=== PATIENT | male | born 1995 | race Hispanic/Latino ===

== ENCOUNTER 2019-01-15 04:11 | Inpatient (IN) | payer MEDICAID, OTHER ==
[~2019-01-15] VITALS: Ht 167.6 cm; Wt 81.6 kg
[2019-01-15 04:28] LABS: BASOPHILS % (AUTO) 0.7 % (0.0-5.0); HEMATOCRIT 47.5 % (42-54); LYMPHOCYTES % (AUTO) 43.6 % (21.0-51.0); MEAN CORPUSCULAR HEMOGLOBIN 29.7 pg (27.0-33.0); MEAN CORPUSCULAR HGB CONC 34.8 g/dL (32.0-36.0); MEAN CORPUSCULAR VOLUME 85.4 fL (79-99); MONOCYTES % (AUTO) 7.9 % (3.0-13.0); NEUTROPHILS % (AUTO) 45.8 % (40.0-77.0); NUCLEATED RED BLOOD CELLS 0.1 % (0.0-0.19); PLATELET COUNT (AUTO) 295 K/uL (130-400); RED BLOOD CELL COUNT(AUTO) 5.56 MIL/uL (4.50-6.20); RED CELL DISTRIBUTION WIDTH 13.2 % (11.0-15.5); WHITE BLOOD COUNT (AUTO) 11.6 K/uL (4.8-10.8)
[2019-01-15] MEDS ORDERED: DiphenhydrAMINE HCL 50 MG/ML VIAL ONE (04:28)
[2019-01-15] MEDS ORDERED: ZIPRASIDONE MESYLATE 20 MG/VIAL IM ONE (04:28)
[2019-01-15] MEDS ORDERED: LORAZEPAM 2 MG/ML 1 ML VIAL ONE (04:28)
[2019-01-15 04:39] LABS: ALBUMIN 4.1 g/dL (3.5-5.0); BILIRUBIN,DIRECT 0.1 mg/dL (0.0-0.3); BILIRUBIN,TOTAL 0.6 mg/dL (0.2-1.0); CREATININE 1.1 mg/dL (0.5-1.5); TOTAL PROTEIN, SERUM 8.2 g/dL (6.0-8.3)
[2019-01-15 04:41] LABS: POTASSIUM 2.8 mmol/L (3.5-5.1)
[2019-01-15] MEDS ORDERED: SODIUM CHLORIDE 0.9% 1000ML 1,000 ML IV ONE (04:58)
[2019-01-15] MEDS ORDERED: POTASSIUM BICARB/CIT AC 25 MEQ TABLET.EFF ONE (05:07)
[2019-01-15 06:52] LABS: AMPHET/METH SCREEN,URINE NEGATIVE (NEGATIVE); BARBITURATE SCREEN, URINE NEGATIVE (NEGATIVE); BENZODIAZEPINES SCREEN,URINE NEGATIVE (NEGATIVE); CANNABINOID SCREEN,URINE POSITIVE (NEGATIVE); COCAINE SCREEN,URINE NEGATIVE (NEGATIVE); OPIATE SCREEN,URINE NEGATIVE (NEGATIVE); PHENCYCLIDINE SCREEN,URINE NEGATIVE (NEGATIVE)
[2019-01-15 06:57] LABS: APPEARANCE,URINE CLEAR (CLEAR); BILIRUBIN,URINE NEGATIVE (NEGATIVE); COLOR,URINE YELLOW (YELLOW); GLUCOSE, URINE (UA) NEGATIVE (NEGATIVE); KETONES,URINE NEGATIVE (NEGATIVE); LEUKOCYTE ESTERASE ,URINE NEGATIVE (NEGATIVE); NITRATE,URINE NEGATIVE (NEGATIVE); OCCULT BLOOD,URINE NEGATIVE (NEGATIVE); PH,URINE 6.5 (5.0-8.0); PROTEIN,URINE NEGATIVE (NEGATIVE); UROBILINOGEN,URINE 0.2 mg/dL (0.2-1.0)
[2019-01-15] MEDS: SODIUM CHLORIDE 0.9% 1000ML 1,000 ML IV SCH ×3 (09:19→23:54)
[2019-01-15] MEDS ORDERED: ONDANSETRON HCL 4 MG/2 ML VIAL IV PRN (09:30)
[2019-01-15] MEDS ORDERED: ACETAMINOPHEN 325 MG TAB PO PRN (09:30)
[2019-01-15] MEDS ORDERED: LACTULOSE 20 GM/30 ML UDCUP PO PRN (09:30)
[2019-01-15] MEDS ORDERED: POTASSIUM CHLORIDE 20MEQ/100ML 100 ML IV PRN (09:30)
[2019-01-15] MEDS ORDERED: LIDOCAINE HCL-MPF 1% 2ML VIAL IV PRN (09:30)
[2019-01-15] MEDS ORDERED: MAGNESIUM 2GM PREMIX 50ML 50 ML IV PRN (09:30)
[2019-01-15] MEDS ORDERED: LORAZEPAM 0.5 MG TABLET PO PRN (09:30)
[2019-01-15] MEDS ORDERED: CHLORDIAZEPOXIDE HCL 25 MG CAP PO PRN (10:45)
[2019-01-15] MEDS ORDERED: PROMETHAZINE HCL 25 MG TABLET PO PRN (10:45)
[2019-01-15] MEDS ORDERED: LORAZEPAM 2 MG/ML 1 ML VIAL IVP PRN (10:45)
[2019-01-15] MEDS ORDERED: PHARMACY COMMUNICATION MISC PRN (10:45)
[2019-01-15] MEDS ORDERED: POTASSIUM CHLORIDE 20 MEQ ERTAB PO ONE (10:54)
[2019-01-15] MEDS ORDERED: ENOXAPARIN SODIUM 30 MG/0.3 ML SQ ONE (10:54)
[2019-01-15] MEDS ORDERED: FAMOTIDINE 20MG TAB 20 MG TAB ONE (10:54)
[2019-01-15] MEDS ORDERED: THIAMINE HCL 100 MG, FOLIC ACID 1 MG, M.V.I. IV [ADULT] 10 ML in SODIUM CHLORIDE 0.9% 1... IV SCH (11:00)
[2019-01-15] MEDS ORDERED: FLU VACC QS2019-20 36MOS UP/PF 60 MCG/0.5 ML ML IM ONE (11:15)
[2019-01-15 11:18] LABS: MAGNESIUM 1.9 mg/dL (1.80-2.40); PHOSPHORUS 4.7 mg/dL (2.5-4.9)
[2019-01-15] MEDS: POTASSIUM CHLORIDE 20 MEQ ERTAB PO SCH ×3 (12:20→22:04)
[2019-01-15] MEDS ORDERED: MAGNESIUM 2GM PREMIX 50ML 50 ML IV ONE (13:01)
[2019-01-15 18:25] VITALS: BP 143/79
--- NOTE | 2019-01-15 22:00 | NUR ---
NOTE PATIENT REQUEST TO GET INFLUENZA VACCINE TOMORROW.
[2019-01-15] MEDS: FAMOTIDINE 20MG TAB 20 MG TAB PO SCH (22:04)
[2019-01-16] VITALS: BP 140/96
[2019-01-16 04:00] VITALS: BP 120/58
[2019-01-16 05:58] LABS: BASOPHILS % (AUTO) 0.6 % (0.0-5.0); EOSINOPHILS % (AUTO) 2.5 % (0.0-8.0); HEMATOCRIT 43.9 % (42-54); LYMPHOCYTES % (AUTO) 33.6 % (21.0-51.0); MEAN CORPUSCULAR HEMOGLOBIN 30.4 pg (27.0-33.0); MEAN CORPUSCULAR HGB CONC 34.6 g/dL (32.0-36.0); MONOCYTES % (AUTO) 8.8 % (3.0-13.0); NEUTROPHILS % (AUTO) 54.5 % (40.0-77.0); NUCLEATED RED BLOOD CELLS 0.1 % (0.0-0.19); PLATELET COUNT (AUTO) 200 K/uL (130-400); RED BLOOD CELL COUNT(AUTO) 4.98 MIL/uL (4.50-6.20); RED CELL DISTRIBUTION WIDTH 13.4 % (11.0-15.5); WHITE BLOOD COUNT (AUTO) 6.4 K/uL (4.8-10.8)
[2019-01-16 06:12] LABS: ALBUMIN 3.3 g/dL (3.5-5.0); BILIRUBIN,TOTAL 0.5 mg/dL (0.2-1.0); POTASSIUM 4.6 mmol/L (3.5-5.1); TOTAL PROTEIN, SERUM 6.9 g/dL (6.0-8.3)
[2019-01-16] MEDS: SODIUM CHLORIDE 0.9% 1000ML 1,000 ML IV SCH (07:04)
[2019-01-16 07:15] LABS: HEPATITIS A ANTIBODY IGM Negative (Negative); HEPATITIS B CORE IGM Negative (Negative); HEPATITIS Bs ANTIGEN SCREEN P Negative (Negative)
--- NOTE | 2019-01-16 07:30 | NUR ---
NOTE AAOX3. DENIES PAIN OR DISCOMFORT AT THIS TIME. NO N/V NO DISTRESS. REPORTS NO PALPITATIONS. STATES HE FELT PALPITATIONS FOR ABOUT 30 MINUTES YESTERDAY AND HAS NT HAPPENED AGAIN. TELEMETRY SR. HAS BEEN AFEBRILE NO OTHER PROBLEM.
[2019-01-16 07:42] VITALS: BP 137/81
[2019-01-16] MEDS ORDERED: MULTIVITAMIN TABLET PO SCH (09:00)
[2019-01-16] MEDS ORDERED: FOLIC ACID 1 MG TABLET PO SCH (09:00)
[2019-01-16] MEDS ORDERED: ENOXAPARIN SODIUM 30 MG/0.3 ML SQ SCH (09:00)
[2019-01-16] MEDS: FAMOTIDINE 20MG TAB 20 MG TAB PO SCH (09:51)
[2019-01-16] MEDS: POTASSIUM CHLORIDE 20 MEQ ERTAB PO SCH (09:52)
[2019-01-16 11:00] VITALS: BP 128/96
--- NOTE | 2019-01-16 12:03 | NUR ---
NOTE DR VICTOR MADE ROUNDS AND HE HAS TOLD PATIENT HE WILL BE DISCHARGED. REFER TO CHART FOR ORDERS.
== END 2019-01-16 13:06 | disposition home or self-care (01) | DRG 433 ==
LOC: EDH 04:11 → EDHIP 04:12 → 4BH 17:51
PROVIDERS: ADMIT Internal Medicine; ATTEND Internal Medicine
DX: K70.10 Alcoholic hepatitis without ascites (principal); M62.82 Rhabdomyolysis; F10.180 Alcohol abuse with alcohol-induced anxiety disorder; E87.6 Hypokalemia; E86.1 Hypovolemia; E86.0 Dehydration; F12.10 Cannabis abuse, uncomplicated; F19.10 Other psychoactive substance abuse, uncomplicated; E87.8 Other disorders of electrolyte and fluid balance, not elsewhere classified; Z23 Encounter for immunization
CPT/HCPCS: 36415; 71045; 80048; 80053; 80074; 80076; 80305; 81003; 82550; 83690; 83735; 84100; 84484; 85025; 93005; 99291; G0378; G0480; J1200; J1650; J2060; J3411; J3475; J3486; J3490; J7030; Q2035

== ENCOUNTER 2021-07-23 02:47 | Emergency (ER) | payer OTHER ==
[~2021-07-23] VITALS: Ht 170.2 cm; Wt 84.4 kg
[2021-07-23 03:20] LABS: APPEARANCE,URINE CLEAR (CLEAR); BILIRUBIN,URINE NEGATIVE (NEGATIVE); COLOR,URINE YELLOW (YELLOW); GLUCOSE, URINE (UA) NEGATIVE (NEGATIVE); KETONES,URINE NEGATIVE (NEGATIVE); LEUKOCYTE ESTERASE ,URINE NEGATIVE (NEGATIVE); NITRATE,URINE NEGATIVE (NEGATIVE); OCCULT BLOOD,URINE NEGATIVE (NEGATIVE); PROTEIN,URINE NEGATIVE (NEGATIVE); UROBILINOGEN,URINE 0.2 mg/dL (0.2-1.0)
[2021-07-23 03:21] LABS: CREATININE 0.9 mg/dL (0.5-1.5); POTASSIUM 3.6 mmol/L (3.5-5.1)
[2021-07-23 03:26] LABS: ALBUMIN 4.4 g/dL (3.5-5.0); BASOPHILS % (AUTO) 0.9 % (0.0-5.0); BILIRUBIN,TOTAL 0.5 mg/dL (0.2-1.0); EOSINOPHILS % (AUTO) 2.4 % (0.0-8.0); HEMATOCRIT 45.4 % (42-54); LYMPHOCYTES % (AUTO) 46.1 % (21.0-51.0); MEAN CORPUSCULAR HEMOGLOBIN 28.4 pg (27.0-33.0); MEAN CORPUSCULAR HGB CONC 33.5 g/dL (32.0-36.0); MEAN CORPUSCULAR VOLUME 84.9 fL (79-99); MONOCYTES % (AUTO) 10.2 % (3.0-13.0); PLATELET COUNT (AUTO) 254 K/uL (130-400); RED BLOOD CELL COUNT(AUTO) 5.35 MIL/uL (4.50-6.20); RED CELL DISTRIBUTION WIDTH 12.4 % (11.0-15.5); TOTAL PROTEIN, SERUM 8.1 g/dL (6.0-8.3); WHITE BLOOD COUNT (AUTO) 7.5 K/uL (4.8-10.8)
[2021-07-23] MEDS ORDERED: FAMOTIDINE 20MG VIAL IV ONE (03:30)
[2021-07-23] MEDS ORDERED: SUCRALFATE 1 GM TABLET PO SCH (03:30)
[2021-07-23] MEDS ORDERED: ONDANSETRON 4MG INJ IVP ONE (03:30)
[2021-07-23] MEDS ORDERED: 0.9%NACL 1000ML 1,000 ML IV ONE (07:30)
[2021-07-23] MEDS ORDERED: PANT40TA PO (08:10)
[2021-07-23] MEDS ORDERED: ONDA4TAB10 PO (08:10)
[2021-07-23 08:27] VITALS: BP 118/68
== END 2021-07-23 08:28 | disposition home or self-care (01) ==
LOC: EDH 02:47
DX: K29.20 Alcoholic gastritis without bleeding (principal); F10.10 Alcohol abuse, uncomplicated; R74.8 Abnormal levels of other serum enzymes
CPT/HCPCS: 36415; 80053; 81003; 83690; 85025; 93005; 96361; 96374; 96375; 99284; J2405; J3490; J7030

== ENCOUNTER 2022-05-13 13:41 | Emergency (ER) | payer OTHER ==
[~2022-05-13] VITALS: Ht 170.2 cm; Wt 83.0 kg
[~2022-05-13 13:41] MED LIST: ONDA4TAB10 PO; PANT40TA PO
[2022-05-13 13:42] VITALS: BP 132/103
[2022-05-13 14:19] LABS: BASOPHILS % (AUTO) 0.6 % (0.0-5.0); EOSINOPHILS % (AUTO) 0.6 % (0.0-8.0); HEMATOCRIT 47.9 % (42-54); LYMPHOCYTES % (AUTO) 29.8 % (21.0-51.0); MEAN CORPUSCULAR HEMOGLOBIN 28.5 pg (27.0-33.0); MEAN CORPUSCULAR VOLUME 83.7 fL (79-99); MONOCYTES % (AUTO) 7.7 % (3.0-13.0); NEUTROPHILS % (AUTO) 60.9 % (40.0-77.0); PLATELET COUNT (AUTO) 297 K/uL (130-400); RED BLOOD CELL COUNT(AUTO) 5.72 MIL/uL (4.50-6.20); RED CELL DISTRIBUTION WIDTH 12.4 % (11.0-15.5); WHITE BLOOD COUNT (AUTO) 5.3 K/uL (4.8-10.8)
[2022-05-13 14:21] LABS: APPEARANCE,URINE CLEAR (CLEAR); BILIRUBIN,URINE NEGATIVE (NEGATIVE); COLOR,URINE YELLOW (YELLOW); GLUCOSE, URINE (UA) NEGATIVE (NEGATIVE); KETONES,URINE NEGATIVE (NEGATIVE); LEUKOCYTE ESTERASE ,URINE NEGATIVE Leu/uL (NEGATIVE); NITRATE,URINE NEGATIVE (NEGATIVE); OCCULT BLOOD,URINE NEGATIVE (NEGATIVE); PROTEIN,URINE 50 mg/dL (NEGATIVE); UROBILINOGEN,URINE 0.2 mg/dL (0.2-1.0)
[2022-05-13 14:25] LABS: BACTERIA,URINE MOD /HPF (None Seen); MUCUS,URINE FEW LPF (None Seen); SQUAMOUS EPITHELIAL CELL,UR RARE /HPF (0-2)
[2022-05-13 14:29] LABS: AMPHET/METH SCREEN,URINE NEGATIVE (NEGATIVE); BARBITURATE SCREEN, URINE NEGATIVE (NEGATIVE); BENZODIAZEPINES SCREEN,URINE NEGATIVE (NEGATIVE); CANNABINOID SCREEN,URINE NEGATIVE (NEGATIVE); COCAINE SCREEN,URINE NEGATIVE (NEGATIVE); OPIATE SCREEN,URINE NEGATIVE (NEGATIVE); PHENCYCLIDINE SCREEN,URINE NEGATIVE (NEGATIVE)
[2022-05-13] MEDS ORDERED: 0.9%NACL 1000ML 1,000 ML IV ONE (14:30)
[2022-05-13 14:31] LABS: CARBON DIOXIDE 28 mmol/L (21-32); CHLORIDE 100 mmol/L (101-111); GLOMERULAR FILTR. RATE CALC 97 mL/min (>60); GLUCOSE,RANDOM 110 mg/dL (70-105); POTASSIUM 3.3 mmol/L (3.5-5.1); SODIUM SERUM 140 mmol/L (136-145); UREA NITROGEN, BLOOD 13 mg/dL (7-18)
[2022-05-13 14:35] LABS: ALANINE AMINOTRANSFERASE 69 U/L (12-78); ALBUMIN 4.3 g/dL (3.5-5.0); ALCOHOL, BLOOD 34 mg/dL (0-10); ASPARTATE AMINOTRANSFERASE 41 U/L (10-37); TOTAL PROTEIN, SERUM 7.8 g/dL (6.0-8.3)
[2022-05-13 14:37] LABS: ACETAMINOPHEN < 1 mcg/mL (10-29); SALICYLATE < 2.8 mg/dL (2.8-20.0)
[2022-05-13] MEDS ORDERED: POTASSIUM BICARB/CIT AC 25 MEQ TABLET.EFF PO ONE (15:30)
== END 2022-05-13 17:15 | disposition home or self-care (01) ==
LOC: EDH 13:41
DX: R45.851 Suicidal ideations (principal); F99 Mental disorder, not otherwise specified; F41.9 Anxiety disorder, unspecified; Z20.822 Contact with and (suspected) exposure to COVID-19; Z90.89 Acquired absence of other organs
CPT/HCPCS: 99283; 96360; 87635; 96361; 80053; 80305; 83690; 85025; 81001; 36415; G0481; C9803; J7030

== ENCOUNTER 2024-08-30 10:51 | Emergency (ER) | payer SELFPAY ==
[~2024-08-30] VITALS: Ht 170.2 cm; Wt 82.6 kg
[~2024-08-30 10:51] MED LIST changes: +ONDA-243 PO; -ONDA4TAB10 PO
[2024-08-30 11:11] LABS: BASOPHILS % (AUTO) 1.4 % (0.0-5.0); EOSINOPHILS # (AUTO) 0.02 K/uL (0.00-0.70); EOSINOPHILS % (AUTO) 0.3 % (0.0-8.0); HEMATOCRIT 46.3 % (42-54); IMMATURE GRANULOCYTE ABSOLUTE 0.02 K/uL (0-1); LYMPHOCYTES # (AUTO) 2.4 K/uL (1.0-4.8); LYMPHOCYTES % (AUTO) 32.4 % (21.0-51.0); MEAN CORPUSCULAR HEMOGLOBIN 29.5 pg (27.0-33.0); MEAN CORPUSCULAR HGB CONC 35.9 g/dL (32.0-36.0); MEAN CORPUSCULAR VOLUME 82.4 fL (79-99); MONOCYTES # (AUTO) 0.5 K/uL (0.1-1.0); NEUTROPHILS # (AUTO) 4.3 K/uL (1.8-7.7); NEUTROPHILS % (AUTO) 58.6 % (40.0-77.0); PLATELET COUNT (AUTO) 362 K/uL (130-400); RED BLOOD CELL COUNT(AUTO) 5.62 MIL/uL (4.50-6.20); RED CELL DISTRIBUTION WIDTH 13.2 % (11.0-15.5); WHITE BLOOD COUNT (AUTO) 7.3 K/uL (4.8-10.8)
[2024-08-30 11:21] LABS: CREATININE 0.8 mg/dL (0.5-1.3); POTASSIUM 3.5 mmol/L (3.5-5.1)
[2024-08-30 11:29] LABS: MAGNESIUM 1.9 mg/dL (1.80-2.40)
[2024-08-30] MEDS: LACTATED RINGERS 1000ML 1,000 ML IV ONE (11:29)
[2024-08-30] MEDS: diazePAM 5 MG/ML 2 ML SYG IVP ONE ×2 (11:30→14:23)
--- NOTE | 2024-08-30 13:23 | ERN ---
General Chief Complaint: Withdrawl Stated Complaint: ALCOHOL WITHDRAWL Time Seen by MD: 10:52 History of Present Illness Initial Comments 29-year-old male who presents with alcohol withdrawal. Patient reports he has had a long history of alcohol abuse. He has been bingeing heavily for the last 7-10 days. His last drink was earlier this morning. He reports headache, anxiety, tremors. Denies any hallucinations or seizure. Denies any other drug use. Allergies: Coded Allergies: No Known Drug Allergies (Verified Allergy, Unknown, 01/15/19) Home Meds Active Scripts Pantoprazole Sodium (Protonix) 40 Mg Tablet.dr, 40 MG PO DAILY for 30 Days, #30 TAB 0 Refills Prov:OBIE MUHAMMAD MD 07/23/21 Ondansetron (Ondansetron Odt) 4 Mg Tab.rapdis, 4 MG PO TIDP PRN for NAUSEA/VOMITING, #12 TAB 0 Refills Prov:OBIE MUHAMMAD MD 07/23/21 Past Medical History Past Medical History: GERD, Other Medical History Other: ALCOHOLISM Past Surgical History: Tonsillectomy Social History Social History: Other ROS Dictation CONSTITUTIONAL: No chills, no fever, no weakness, no diaphoresis, no malaise. HEAD/FACE: No signs of trauma. EENT: No eye pain, no blurred vision, no tearing, no double vision, no ear pain, no ear discharge, no nose pain, no nasal congestion, no throat pain, no throat swelling, no mouth pain. RESPIRATORY: No cough, no orthopnea, no SOB, no stridor, no wheezing. CARDIOVASCULAR: No chest pain, no edema, no palpitations, no syncope. GASTROINTESTINAL/ABDOMINAL: No abdominal pain, no constipation, no diarrhea, no nausea, no vomiting. GENITOURINARY: No abnormal discharge, no dysuria, no frequent urination, no hematuria. No complaints of pain in the genitals. MUSCULOSKELETAL: No back pain, no gout, no joint pain, no joint swelling, no muscle pain, no muscle stiffness, no neck pain. INTEGUMENTARY: No change in color, no change in hair/nails, no dryness, no lesion, no lumps, no rash. NEUROLOGICAL/PSYCH: No anxiety, not depressed, no emotional problem, no headache, no numbness, no pre-existing deficit, no history of seizures, no tremors, no weakness. HEMATOLOGIC/LYMPHATIC: Not anemic, no history of blood clots, no apparent bleeding, no bruising, glands not swollen. All Systems Negative, Except as Noted. Physical Exam Physical Exam Dictation VITAL SIGNS: Reviewed. GENERAL APPEARANCE: Alert, oriented x3, mild distress HEAD AND FACE: Non-traumatic. EYES: PERRL, pink conjunctivas, eyelid no trauma, anterior chamber clear. EARS: Pinnas intact and no signs of trauma or erythema. Ear canals clear and no discharge. TMs no erythema. NOSE: No discharge, no bleeding. OROPHARYNX: Mouth normal, teeth no caries, tongue pink. Pharynx clear, no erythema. Tonsils no exudates, no abscesses noted. Mucous membrane moist. NECK: Supple, non-tender, no thyromegaly, no masses, no JVD, no bruits. BREAST: Deferred. CHEST: No tenderness, no crepitus, no paradoxical movement, no retractions. LUNGS: Clear, well-ventilated, symmetric, no rales, no wheezing, no rhonchi, no stridor, good breath sounds bilaterally. HEART: Regular rate, regular rhythm, no murmur, no gallops. VASCULAR: No peripheral edema. ABDOMEN: Soft, positive bowel sounds, nondistended, no guarding, nontender, no rebound, no masses no hepatomegaly, no splenomegaly, no Maria's sign, no hernias. RECTAL: Deferred. GENITAL: Deferred. NEUROLOGICAL: Anxious Tremors MUSCULOSKELETAL: Neck nontender, full range of motion, back nontender, full range of motion. EXTREMITIES: Nontender, full range of motion. SKIN: Color pink, dry, no turgor, no rash, no lacerations, no abrasions, no c ontusions. LYMPHATICS: Deferred. Results Laboratory and Microbiology Lab and Micro Result Laboratory Tests Test 08/30/24 10:03 White Blood Count 7.3 K/uL (4.8-10.8) Red Blood Count 5.62 MIL/uL (4.50-6.20) Hemoglobin 16.6 g/dL (14.0-18.0) Hematocrit 46.3 % (42-54) Mean Corpuscular Volume 82.4 fL (79-99) Mean Corpuscular Hemoglobin 29.5 pg (27.0-33.0) Mean Corpuscular Hemoglobin Concent 35.9 g/dL (32.0-36.0) Red Cell Distribution Width 13.2 % (11.0-15.5) Platelet Count 362 K/uL (130-400) Mean Platelet Volume 9.3 fL (7.5-10.5) Immature Granulocyte % (Auto) 0.3 % (0-1) Neutrophils (%) (Auto) 58.6 % (40.0-77.0) Lymphocytes (%) (Auto) 32.4 % (21.0-51.0) Monocytes (%) (Auto) 7.0 % (3.0-13.0) Eosinophils (%) (Auto) 0.3 % (0.0-8.0) Basophils (%) (Auto) 1.4 % (0.0-5.0) Neutrophils # (Auto) 4.3 K/uL (1.8-7.7) Lymphocytes # (Auto) 2.4 K/uL (1.0-4.8) Monocytes # (Auto) 0.5 K/uL (0.1-1.0) Eosinophils # (Auto) 0.02 K/uL (0.00-0.70) Basophils # (Auto) 0.10 K/uL (0.00-0.20) Absolute Immature Granulocyte (auto 0.02 K/uL (0-1) Nucleated Red Blood Cells 0.0 % (0.0-0.19) Sodium Level 134 mmol/L (136-145) L Potassium Level 3.5 mmol/L (3.5-5.1) Chloride Level 93 mmol/L (101-111) L Carbon Dioxide Level 26 mmol/L (21-32) Blood Urea Nitrogen 15 mg/dL (7-18) Creatinine 0.8 mg/dL (0.5-1.3) Glomerular Filtration Rate Calc 124 mL/min (>90) Random Glucose 96 mg/dL (70-105) Total Calcium 8.6 mg/dL (8.5-10.1) Magnesium Level 1.90 mg/dL (1.80-2.40) Total Creatine Kinase 210 U/L (21-232) # Troponin I High Sensitivity 6.7 ng/L (4-75) Serum Alcohol 199 mg/dL (0-10) H MDM CC: Alcohol withdrawal Historian: Patient Comorbidities: Alcohol abuse Limitations by social determinants of health: Uninsured Differential diagnosis: Alcohol withdrawal syndrome, delirium tremens, seizures, anxiety, other. Initially patient came in tachycardic, hypertensive, otherwise vital signs stable. GCS of 15. Mild tremors. CIWA score 15. Started on IV fluids, banana bag, given Valium. Labs (independently and interpreted by me): No leukocytosis, chemistry panel stable, CK is normal troponin is normal. Alcohol level one nine. Treatment in ED: IV fluids, banana bag, Valium Re-evaluation she was improved. Plan discharge. Recommend follow up as needed. ED Course Orders Procedure Category Date Status Time 12 Lead Ekg Tracing- EKG 08/30/24 Logged Technical 10:59 Lactated Ringers PHA 08/30/24 Complete 1000ml (Lactated 11:00 Alcohol, Blood LAB 08/30/24 Complete 10:58 Cardiac Panel LAB 08/30/24 Complete 10:58 Cbc With Differential LAB 08/30/24 Complete 10:58 Basic Metabolic Panel LAB 08/30/24 Complete 10:58 Magnesium LAB 08/30/24 Complete 10:58 Urinalysis Profile LAB 08/30/24 Logged 10:58 Diazepam 5 Mg/Ml 2 Ml PHA 08/30/24 Complete Syg (Valium 5 Mg/M 11:00 Drug Screen Urine LAB 08/30/24 Logged 10:58 M.V.I. Iv [Adult] PHA 08/30/24 In Process (M.V.I. Iv [Adult])... 13:00 Diazepam 5 Mg/Ml 2 Ml PHA 08/30/24 Transmitted Syg (Valium 5 Mg/M 14:00 Current Medications Medications (Trade) Dose Ordered Sig/Moncho Route PRN Reason Start Time Stop Time Status Last Admin Dose Admin Diazepam (VALium 5 MG/ML 2 ML SYG) 10 mg ONCE ONCE IVP 08/30/24 11:00 08/30/24 11:02 DC 08/30/24 11:30 Lactated Ringer's 1,000 ml @ 0 mls/hr ONCE ONCE IV 08/30/24 11:00 08/30/24 11:02 DC 08/30/24 11:29 Multivitamins/ Minerals 10 ml/ Folic Acid 1 mg/ Thiamine HCl 100 mg/Sodium Chloride 1,010 ml @ 0 mls/hr DAILY IV 08/30/24 13:00 09/01/24 09:01 Vital Signs Date Time Temp Pulse Resp B/P (MAP) Pulse Ox O2 Delivery O2 Flow Rate FiO2 08/30/24 11:10 98.4 108 16 160/112 96 Room Air* 0 21 08/30/24 10:52 98.4 108 16 160/112 96 Room Air 0 DX & DISP Disposition: Discharge Departure Impression: Primary Impression: Alcohol withdrawal Condition: Stable Additional Instructions: Follow up as an outpatient for alcohol withdrawal. Return to the emergency department as needed. Referrals: MAKAYLA ANTHONY DO (PCP) ROB DUFF DO Aug 30, 2024 13:23
[2024-08-30] MEDS: M.V.I. IV [ADULT] 10 ML, FOLic ACID 5 MG/ML VIAL 1 MG, THIAMINE HCL 100 MG in 0.9%NACL ... IV SCH (13:41)
--- NOTE | 2024-08-30 14:23 | EKG ---
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
[2024-08-30 15:06] LABS: APPEARANCE,URINE CLEAR (CLEAR); BILIRUBIN,URINE NEGATIVE (NEGATIVE); COLOR,URINE LIGHT-YELLOW (YELLOW); GLUCOSE, URINE (UA) NEGATIVE (NEGATIVE); KETONES,URINE 40 mg/dL (NEGATIVE); LEUKOCYTE ESTERASE ,URINE NEGATIVE Leu/uL (NEGATIVE); NITRATE,URINE NEGATIVE (NEGATIVE); OCCULT BLOOD,URINE NEGATIVE (NEGATIVE); PH,URINE 6.5 (5.0-8.0); PROTEIN,URINE NEGATIVE (NEGATIVE); UROBILINOGEN,URINE 0.2 mg/dL (0.2-1.0)
[2024-08-30 15:13] LABS: AMPHET/METH SCREEN,URINE NEGATIVE (NEGATIVE); BARBITURATE SCREEN, URINE NEGATIVE (NEGATIVE); BENZODIAZEPINES SCREEN,URINE NEGATIVE (NEGATIVE); CANNABINOID SCREEN,URINE NEGATIVE (NEGATIVE); COCAINE SCREEN,URINE NEGATIVE (NEGATIVE); OPIATE SCREEN,URINE NEGATIVE (NEGATIVE); PHENCYCLIDINE SCREEN,URINE NEGATIVE (NEGATIVE)
[2024-08-30 15:18] LABS: ADD UA MICROSCOPIC NO
[2024-08-30 15:29] VITALS: BP 146/84; PULSE 95; RESP 19; TEMP 99; O2SAT 97
== END 2024-08-30 15:40 | disposition home or self-care (01) ==
LOC: EDH 10:51
DX: F10.939 Alcohol use, unspecified with withdrawal, unspecified (principal); Z79.899 Other long term (current) drug therapy; Z90.89 Acquired absence of other organs; Y90.9 Presence of alcohol in blood, level not specified
CPT/HCPCS: 99285; 96365; 96361; 96375; 82550; 83735; 84484; 80048; 80305; 85025; 81003; 36415; 96376; 93005; J7120; J7030; J3360 ×2; J3411; J3490

== ENCOUNTER 2024-10-11 07:05 | Emergency (ER) | payer SELFPAY ==
[~2024-10-11] VITALS: Ht 170.2 cm; Wt 81.6 kg
[~2024-10-11 07:05] MED LIST changes: +ESZO2TAB56 PO
[2024-10-11] MEDS ORDERED: PHARMACY COMMUNICATION MISC PRN (07:30)
[2024-10-11] MEDS ORDERED: COMPOUND IV REFRIGERATED 1 EACH IVSOLN MISC PRN (07:30)
[2024-10-11 07:32] LABS: IMMATURE GRANULOCYTE ABSOLUTE 0.01 K/uL (0-1); NUCLEATED RED BLOOD CELLS 0.0 % (0.0-0.19); PLATELET COUNT (AUTO) 291 K/uL (130-400); RED BLOOD CELL COUNT(AUTO) 6.00 MIL/uL (4.50-6.20); RED CELL DISTRIBUTION WIDTH 12.0 % (11.0-15.5); WHITE BLOOD COUNT (AUTO) 5.9 K/uL (4.8-10.8)
[2024-10-11] MEDS: THIAMINE HCL 100 MG, FOLic ACID 5 MG/ML VIAL 1 MG, M.V.I. IV [ADULT] 10 ML in 0.9%NACL ... IV SCH (07:45)
--- NOTE | 2024-10-11 07:49 | ERN ---
General Chief Complaint: Withdrawl Stated Complaint: ALCOHOL WITHDRAWL Time Seen by MD: 07:12 Source: patient History of Present Illness Initial Comments Patient is a 29-year-old male coming in due to what he states is withdrawals. Patient states that he is a heavy drinker and last time he drank was yesterday. Feels very anxious and states he feels ill. Allergies: Coded Allergies: No Known Drug Allergies (Verified Allergy, Unknown, 01/15/19) Home Meds Active Scripts Eszopiclone (Lunesta) 2 Mg Tablet, 2 MG PO HS PRN for SLEEP, #15 TAB 0 Refills Prov:WENCESLAO WINCHESTER MD 09/19/24 Pantoprazole Sodium (Protonix) 40 Mg Tablet.dr, 40 MG PO DAILY for 30 Days, #30 TAB 0 Refills Prov:OBIE MUHAMMAD MD 07/23/21 Ondansetron (Ondansetron Odt) 4 Mg Tab.rapdis, 4 MG PO TIDP PRN for N AUSEA/VOMITING, #12 TAB 0 Refills Prov:OBIE MUHAMMAD MD 07/23/21 Past Medical History Past Medical History: GERD, Other Medical History Other: ALCOHOLISM Past Surgical History: Tonsillectomy Family History Family History: Negative Social History Social History: ETOH, Other ROS Dictation CONSTITUTIONAL: No chills, no fever, no weakness, no diaphoresis, no malaise. HEAD/FACE: No signs of trauma. EENT: No eye pain, no blurred vision, no tearing, no double vision, no ear pain, no ear discharge, no nose pain, no nasal congestion, no throat pain, no throat swelling, no mouth pain. RESPIRATORY: No cough, no orthopnea, no SOB, no stridor, no wheezing. CARDIOVASCULAR: No chest pain, no edema, no palpitations, no syncope. GASTROINTESTINAL/ABDOMINAL: No abdominal pain, no constipation, no diarrhea, no nausea, no vomiting. GENITOURINARY: No abnormal discharge, no dysuria, no frequent urination, no hematuria. No complaints of pain in the genitals. MUSCULOSKELETAL: No back pain, no gout, no joint pain, no joint swelling, no muscle pain, no muscle stiffness, no neck pain. INTEGUMENTARY: No change in color, no change in hair/nails, no dryness, no lesion, no lumps, no rash. NEUROLOGICAL/PSYCH: No anxiety, not depressed, no emotional problem, no headache, no numbness, no pre-existing deficit, no history of seizures, no tremors, no weakness. HEMATOLOGIC/LYMPHATIC: Not anemic, no history of blood clots, no apparent bleeding, no bruising, glands not swollen. All Systems Negative, Except as Noted. Physical Exam Physical Exam Dictation VITAL SIGNS: Reviewed. GENERAL APPEARANCE: Alert, oriented x3, no acute distress, obese. HEAD AND FACE: Non-traumatic. EYES: PERRL, pink conjunctivas, eyelid no trauma, anterior chamber clear. EARS: Pinnas intact and no signs of trauma or erythema. Ear canals clear and no discharge. TMs no erythema. NOSE: No discharge, no bleeding. OROPHARYNX: Mouth normal, teeth no caries, tongue pink. Pharynx clear, no erythema. Tonsils no exudates, no abscesses noted. Mucous membrane moist. NECK: Supple, non-tender, no thyromegaly, no masses, no JVD, no bruits. BREAST: Deferred. CHEST: No tenderness, no crepitus, no paradoxical movement, no retractions. LUNGS: Clear, well-ventilated, symmetric, no rales, no wheezing, no rhonchi, no stridor, good breath sounds bilaterally. HEART: Regular rate, regular rhythm, no murmur, no gallops. VASCULAR: No peripheral edema. ABDOMEN: Soft, positive bowel sounds, nondistended, no guarding, nontender, no rebound, no masses no hepatomegaly, no splenomegaly, no Maria's sign, no hernias. RECTAL: Deferred. GENITAL: Deferred. NEUROLOGICAL: Normal speech, gross motor function intact, gross sensory function intact. MUSCULOSKELETAL: Neck nontender, full range of motion, back nontender, full range of motion. EXTREMITIES: Nontender, full range of motion. SKIN: Color pink, dry, no turgor, no rash, no lacerations, no abrasions, no contusions. LYMPHATICS: Deferred. Results Laboratory and Microbiology Lab and Micro Result Laboratory Tests Test 10/11/24 05:09 10/11/24 07:21 10/11/24 12:49 10/11/24 15:49 Urine Opiates Screen NEGATIVE (NEGATIVE) Urine Barbiturates Screen NEGATIVE (NEGATIVE) Urine Phencyclidine Screen NEGATIVE (NEGATIVE) Urine Amphetamines Screen NEGATIVE (NEGATIVE) Urine Benzodiazepines Screen NEGATIVE (NEGATIVE) Urine Cocaine Screen NEGATIVE (NEGATIVE) Urine Marijuana (THC) Screen NEGATIVE (NEGATIVE) White Blood Count 5.9 K/uL (4.8-10.8) Red Blood Count 6.00 MIL/uL (4.50-6.20) Hemoglobin 17.9 g/dL (14.0-18.0) Hematocrit 48.9 % (42-54) Mean Corpuscular Volume 81.5 fL (79-99) Mean Corpuscular Hemoglobin 29.8 pg (27.0-33.0) Mean Corpuscular Hemoglobin Concent 36.6 g/dL (32.0-36.0) H Red Cell Distribution Width 12.0 % (11.0-15.5) Platelet Count 291 K/uL (130-400) Mean Platelet Volume 9.8 fL (7.5-10.5) Immature Granulocyte % (Auto) 0.2 % (0-1) Neutrophils (%) (Auto) 51.2 % (40.0-77.0) Lymphocytes (%) (Auto) 37.3 % (21.0-51.0) Monocytes (%) (Auto) 10.2 % (3.0-13.0) Eosinophils (%) (Auto) 0.2 % (0.0-8.0) Basophils (%) (Auto) 0.9 % (0.0-5.0) Neutrophils # (Auto) 3.0 K/uL (1.8-7.7) Lymphocytes # (Auto) 2.2 K/uL (1.0-4.8) Monocytes # (Auto) 0.6 K/uL (0.1-1.0) Eosinophils # (Auto) 0.01 K/uL (0.00-0.70) Basophils # (Auto) 0.05 K/uL (0.00-0.20) Absolute Immature Granulocyte (auto 0.01 K/uL (0-1) Nucleated Red Blood Cells 0.0 % (0.0-0.19) Red Blood Cell Morphology See comments Sodium Level 132 mmol/L (136-145) L Potassium Level 3.0 mmol/L (3.5-5.1) *L Chloride Level 91 mmol/L (101-111) L Carbon Dioxide Level 29 mmol/L (21-32) Blood Urea Nitrogen 13 mg/dL (7-18) Creatinine 0.8 mg/dL (0.5-1.3) Glomerular Filtration Rate Calc 124 mL/min (>90) Random Glucose 123 mg/dL (70-105) H Total Calcium 8.0 mg/dL (8.5-10.1) L Phosphorus Level 3.0 mg/dL (2.5-4.9) Magnesium Level 1.70 mg/dL (1.80-2.40) L Total Bilirubin 1.7 mg/dL (0.2-1.0) H Aspartate Amino Transf (AST/SGOT) 299 U/L (10-37) H Alanine Aminotransferase (ALT/SGPT) 245 U/L (12-78) H Alkaline Phosphatase 98 U/L (50-136) Total Protein 7.1 g/dL (6.0-8.3) Albumin 3.8 g/dL (3.5-5.0) Serum Alcohol 225 mg/dL (0-10) H 141 mg/dL (0-10) H 94 mg/dL (0-10) H Test 10/11/24 17:46 Serum Alcohol 56 mg/dL (0-10) H Labs Reviewed?: Yes MDM MDM: Differential diagnosis: Alcohol abuse, alcohol withdrawal, SI, HI, Rationale: Tests considered and ordered secondary to shared decision making include: Previous outside records reviewed: Old ER visits. Risk of complication and/or morbidity or mortality of patient management: None Medications-Per medication reconciliation Need for hospitalization: Patient does not meet criteria for hospitalization. Need for emergency major/minor surgery: No There are no social concerns with this patient. Prescription drug management Prescriptions will include symptomatic care Patient's prior external medical records from other ER visits were reviewed by me as indicated. Prior testing and results from previous visits were reviewed. Prior tests were taken into account with medical decision making and resource utilization, independent historian/historians were used to obtain complete medical history. Patient has been evaluated by inpatient psychiatry services and they say that he does not meet criteria for admission. No suicidal ideation no desire to hurt other people as well. I strongly encouraged the patient to go to [facility] and he is deferring. I independently interpreted the test that were performed, results were reviewed by me and considered findings on radiology if ordered. Medical management and examination interpretation discussions were had by me with other qualified healthcare professionals as indicated for the patient's care. ED Course Orders Procedure Category Date Status Time Etoh Alcohol TRENA 10/11/24 In Process Withdrawal Ords 07:14 Cbc With Differential LAB 10/11/24 Complete 07:14 Comprehensive LAB 10/11/24 Complete Metabolic Panel 07:14 Magnesium LAB 10/11/24 Complete 07:14 Phosphorus LAB 10/11/24 Complete 07:14 Alcohol, Blood LAB 10/11/24 Complete 07:14 Chlordiazepoxide Hcl PHA 10/11/24 In Process 25 Mg Cap (Librium 07:30 Thiamine Hcl (Vitamin PHA 10/11/24 In Process B-1)... 07:30 Pharmacy PHA 10/11/24 Complete Communication 07:30 Use [facility] CPOE 10/11/24 Transmitted Assmt. Tool 07:14 Assess The Need For CPOE 10/11/24 Transmitted Seizure & 07:14 Vs Per Unit Routine & CPOE 10/11/24 Transmitted With 07:14 Document Etoh CPOE 10/11/24 Transmitted Withdrawal Score 07:14 Compound Iv PHA 10/11/24 In Process Refrigerated 07:30 Drug Screen Urine LAB 10/11/24 Complete 07:22 Ondansetron 4mg Inj PHA 10/11/24 Complete (Zofran 4mg Inj) 07:23 Ondansetron 4mg Inj PHA 10/11/24 Complete (Zofran 4mg Inj) 07:30 Potassium Bicarb/Cit PHA 10/11/24 Complete Ac 25meq (K-Lyte Ta 08:30 Potassium Bicarb/Cit PHA 10/11/24 Complete Ac 25meq (K-Lyte Ta 08:22 Ondansetron 4mg Inj PHA 10/11/24 Complete (Zofran 4mg Inj) 09:00 Lidocaine Hcl 2% PHA 10/11/24 Complete Viscous (Lidocaine Hcl 09:00 Mag/Alum/Simeth 30ml PHA 10/11/24 Complete (Maalox Plus 30ml) 09:00 Pantoprazole 40mg Inj PHA 10/11/24 Complete (Protonix 40mg Inj 09:00 Us Abdominal Ruq\Ltd US 10/11/24 Taken 09:00 One To One Sitter CPOE 10/11/24 Transmitted 09:01 Hydroxyzine 50mg Vial PHA 10/11/24 Complete (Atarax 50mg Inj) 09:30 Magnesium 2gm Premix PHA 10/11/24 Complete 50ml (Magnesium 2gm 09:03 Hydroxyzine 50mg Vial PHA 10/11/24 Complete (Atarax 50mg Inj) 09:04 0.9%Nacl 1000ml (Ns PHA 10/11/24 Complete 1000ml) 12:00 Promethazine Hcl PHA 10/11/24 Complete (Phenergan) 12:30 Promethazine Hcl PHA 10/11/24 Complete (Phenergan) 12:19 Alcohol, Blood LAB 10/11/24 Complete 12:36 0.9%Nacl 1000ml (Ns PHA 10/11/24 Complete 1000ml) 15:00 Alcohol, Blood LAB 10/11/24 Complete 15:24 Alcohol, Blood LAB 10/11/24 Complete 17:40 Potassium LAB 10/11/24 Logged 17:52 Current Medications Medications (Trade) Dose Ordered Sig/Moncho Route PRN Reason Start Time Stop Time Status Last Admin Dose Admin Al Hydroxide/Mg Hydroxide (MAALox PLUS 30ML) 30 ml ONCE ONCE PO 10/11/24 09:00 10/11/24 09:02 DC 10/11/24 09:08 Chlordiazepoxide HCl (LIBrium 25 MG CAP) 25 mg Q2H PRN PO ALCOHOL WITHDRAWAL PROTOCOL 10/11/24 07:30 10/18/24 07:29 10/11/24 07:20 Hydroxyzine HCl (ATArax 50MG INJ) 50 mg ONCE ONCE IM 10/11/24 09:30 10/11/24 09:31 DC 10/11/24 09:08 Hydroxyzine HCl (ATArax 50MG INJ) 50 mg STK-MED ONCE IM 10/11/24 09:04 10/11/24 09:04 DC Lidocaine HCl (Lidocaine HCl 2% Viscous) 10 ml ONCE ONCE PO 10/11/24 09:00 10/11/24 09:02 DC 10/11/24 09:08 Magnesium Sulfate 50 ml @ 0 mls/hr PROTOCOL STAT IV 10/11/24 09:03 10/11/24 09:05 DC 10/11/24 09:15 Ondansetron HCl (zoFRAN 4MG INJ) 4 mg ONCE ONCE IVP 10/11/24 07:30 10/11/24 07:31 DC 10/11/24 07:27 Ondansetron HCl (zoFRAN 4MG INJ) 4 mg ONCE ONCE IVP 10/11/24 09:00 10/11/24 09:02 DC 10/11/24 09:15 Ondansetron HCl (zoFRAN 4MG INJ) 4 mg STK-MED ONCE .ROUTE 10/11/24 07:23 10/11/24 07:23 DC Pantoprazole Sodium (PROTonix 40MG INJ) 40 mg ONCE ONCE IVP 10/11/24 09:00 10/11/24 09:02 DC 10/11/24 09:08 Pharmacy Profile Note (Pharmacy Communication) 1 each PROTOCOL PRN MISC ETOH Withdrawal Score changes 10/11/24 07:30 10/11/24 07:18 DC Potassium Bicarbonate (K-Lyte Tablet Eff 25 Meq Tablet.eff) 25 meq STK-MED ONCE .ROUTE 10/11/24 08:22 10/11/24 08:22 DC Potassium Bicarbonate (K-Lyte Tablet Eff 25 Meq Tablet.eff) 50 meq ONCE ONCE PO 10/11/24 08:30 10/11/24 08:31 DC 10/11/24 08:26 Promethazine HCl (Phenergan) 25 mg ONCE ONCE IM 10/11/24 12:30 10/11/24 12:31 DC 10/11/24 12:20 Promethazine HCl (Phenergan) 25 mg STK-MED ONCE IM 10/11/24 12:19 10/11/24 12:19 DC Sodium Chloride 1,000 ml @ 0 mls/hr ONCE ONCE IV 10/11/24 15:00 10/11/24 15:01 DC 10/11/24 14:57 Sodium Chloride 1,000 ml @ 0 mls/hr Q0M ONCE IV 10/11/24 12:00 10/11/24 12:01 DC 10/11/24 11:30 Thiamine HCl 100 mg/Folic Acid 1 mg/Multivitamins/ Minerals 10 ml/ Sodium Chloride 1,011.2 ml @ 100 mls/ hr Q24H IV 10/11/24 07:30 10/13/24 17:37 10/11/24 07:45 Vital Signs Date Time Temp Pulse Resp B/P (MAP) Pulse Ox O2 Delivery O2 Flow Rate FiO2 10/11/24 18:15 97 14 147/100 97 Room Air* 0 21 10/11/24 12:46 85 16 128/76 98 Room Air* 0 21 10/11/24 07:07 98.4 120 22 104/58 100 Room Air 0 DX & DISP Disposition: Discharge Departure Impression: Primary Impression: Alcohol withdrawal Additional Impressions: Abnormal liver enzymes, Suicidal ideation, Homicidal ideation, Alcoholic hepatitis Condition: Stable Referrals: MAKAYLA ANTHONY DO (PCP) I strongly encourage you to attend meetings of alcoholics anonymous and to go to an acute rehabilitation facility to help you stop drinking too much alcohol. You already have damage to your liver and you are in a pattern of repeated admissions to the emergency department for alcohol toxicity. You need to make a change. LUIS A RATLIFF MD Oct 11, 2024 07:49 DELMER APPIAH MD Oct 11, 2024 20:07
[2024-10-11 07:57] LABS: ALCOHOL, BLOOD 225.0 mg/dL (0-10); ASPARTATE AMINOTRANSFERASE 299.0 U/L (10-37); CREATININE 0.8 mg/dL (0.5-1.3); GLOMERULAR FILTR. RATE CALC 124.0 mL/min (>90); GLUCOSE,RANDOM 123.0 mg/dL (70-105); PHOSPHORUS 3.0 mg/dL (2.5-4.9); SODIUM SERUM 132.0 mmol/L (136-145); TOTAL PROTEIN, SERUM 7.1 g/dL (6.0-8.3); UREA NITROGEN, BLOOD 13.0 mg/dL (7-18)
[2024-10-11 08:32] LABS: AMPHET/METH SCREEN,URINE NEGATIVE (NEGATIVE); BARBITURATE SCREEN, URINE NEGATIVE (NEGATIVE); CANNABINOID SCREEN,URINE NEGATIVE (NEGATIVE); COCAINE SCREEN,URINE NEGATIVE (NEGATIVE)
--- NOTE | 2024-10-11 08:58 | NUR ---
PT VERBALIZED ABD PAIN, FRUSTRATED STATES "DOESNT KNOW WHAT TO DO AND WANTS TO HURT SOMEONE" NOTIFIED PRIMARY NURSE, ER DOCTOR, AND SECURITY.
--- NOTE | 2024-10-11 09:02 | NUR ---
ONE TO ONE SITTER. PATIENT VOICES WANTING TO HARM OTHERS
[2024-10-11] MEDS: MAG/ALUM/SIMETH 30 ML UDCUP PO ONE (09:08)
[2024-10-11] MEDS: LIDOCAINE HCL 2% VISCOUS 15 ML UDCUP PO ONE (09:08)
[2024-10-11] MEDS: MAGNESIUM 2GM PREMIX 50ML 50 ML IV STA (09:15)
--- NOTE | 2024-10-11 09:53 | NUR ---
AT THIS TIME IS CALM, RESTING COMFORTABLY. ONE TO ONE SITTER DELROY TOOL ROOM MACHINIST
--- NOTE | 2024-10-11 10:30 | NUR ---
PENDING [facility] SCREENING ONCE SERUM ALCOHOL BELOW 80.
[2024-10-11] MEDS: 0.9%NACL 1000ML 1,000 ML IV ONE ×2 (11:30→14:57)
[2024-10-11] MEDS: PROMETHAZINE HCL 25 MG/ML 1ML AMPULE IM ONE ×2 (12:20→12:29)
--- NOTE | 2024-10-11 12:46 | NUR ---
AT THIS TIME THE PATIENT DENIES THOUGHTS OF HARMING OTHERS
--- NOTE | 2024-10-11 18:09 | NUR ---
[facility] ACTIVATED FOR SCREENER
--- NOTE | 2024-10-11 18:41 | NUR ---
BEHAVIORAL HEALTH SCREENER AT BEDSIDE
--- NOTE | 2024-10-11 19:11 | NUR ---
[place] TROPICAL SCREENER AT BEDSIDE.
--- NOTE | 2024-10-11 19:52 | NUR ---
JENNIFER PLATA STILL AT BEDSIDE WITH PATIENT.
--- NOTE | 2024-10-11 20:02 | NUR ---
DR APPIAH AT BEDSIDE SPEAKING WITH PATIENT.
[2024-10-11 20:30] VITALS: BP 154/90; PULSE 90; RESP 18; TEMP 98.3; O2SAT 98
--- NOTE | 2024-10-15 20:41 | HMCIMG ---
EXAMINATION: ULTRASOUND OF THE ABDOMEN (LIMITED) WITH COLOR DOPPLER. CLINICAL HISTORY: Transaminitis. COMPARISON: None. TECHNIQUE: Real-time grayscale ultrasound images of the abdomen. In addition, color Doppler is medically necessary to perform in order to evaluate vascularity and blood flow. FINDINGS: Liver: Normal in caliber, the right hepatic lobe measures 15.8 cm in the craniocaudal dimension. There is increased echogenicity of the hepatic parenchyma. There is no focal hepatic abnormality or intrahepatic biliary ductal dilatation. There is normal spectral Doppler of the main portal vein. Gallbladder: Overdistended (12.0 cm) with normal wall thickness (0.34 cm). No hyperemia or pericholecystic free fluid. There is no cholelithiasis. Common bile duct is normal in caliber, measuring 0.41 cm. Pancreas: Head is normal in caliber and echotexture. No calcification or dilated pancreatic duct. The body and tail are obscured by overlying bowel gas. The right kidney is normal in caliber, the right kidney measures 10.6 x 4.5 x 3.8 cm in its craniocaudal, AP, and transverse dimensions respectively. There is normal renal cortical thickness, and cortical echogenicity. There is no renal calculus or hydronephrosis. IMPRESSION: Hepatic steatosis. Overdistended gallbladder. Recommend hepatobiliary (HIDA) scan to exclude early acute cholecystitis. /[place]
== END 2024-10-11 20:32 | disposition home or self-care (01) ==
LOC: EDH 07:05
DX: F10.939 Alcohol use, unspecified with withdrawal, unspecified (principal); K70.10 Alcoholic hepatitis without ascites; R45.850 Homicidal ideations; R45.851 Suicidal ideations; R79.89 Other specified abnormal findings of blood chemistry; Z90.89 Acquired absence of other organs; Z79.899 Other long term (current) drug therapy; Y90.9 Presence of alcohol in blood, level not specified
CPT/HCPCS: 99285; 96366; 96365; 76705; 96375; 83735; 84100; 80053; 80305; 85025; 36415; 96368; 96376; 84132; J3475; J3410; J7030; J2550; J3411; J2405 ×2; J3490; J2470; 96361; 96372

== ENCOUNTER 2024-11-21 04:53 | Emergency (ER) | payer SELFPAY ==
[~2024-11-21] VITALS: Ht 170.2 cm; Wt 81.6 kg
[2024-11-21 05:06] VITALS: TEMP 98.1
[2024-11-21 05:12] LABS: IMMATURE GRANULOCYTE ABSOLUTE 0.01 K/uL (0-1); NUCLEATED RED BLOOD CELLS 0.0 % (0.0-0.19); PLATELET COUNT (AUTO) 250 K/uL (130-400); RED BLOOD CELL COUNT(AUTO) 6.32 MIL/uL (4.50-6.20); RED CELL DISTRIBUTION WIDTH 13.2 % (11.0-15.5); WHITE BLOOD COUNT (AUTO) 7.0 K/uL (4.8-10.8)
[2024-11-21] MEDS: THIAMINE HCL 100 MG/ML 2ML VIAL IVP ONE (05:19)
[2024-11-21] MEDS: 0.9%NACL 1000ML 1,000 ML IV ONE (05:19)
[2024-11-21 05:21] LABS: ALCOHOL, BLOOD 269.0 mg/dL (0-10); CREATININE 1.0 mg/dL (0.5-1.3); GLOMERULAR FILTR. RATE CALC 105.0 mL/min (>90); GLUCOSE,RANDOM 110.0 mg/dL (70-105); SODIUM SERUM 134.0 mmol/L (136-145); UREA NITROGEN, BLOOD 12.0 mg/dL (7-18)
--- NOTE | 2024-11-21 05:22 | ERN ---
ED Note History of Present Illness Stated Complaint: LLQ ABDOMINAL PAIN, CONSTIPATION X 6 DAYS Chief Complaint: Abdominal Pain Time Seen by MD: 04:58 Dictation: 29-year-old male was brought by EMS from home to the emergency department due to not feeling well. Patient he is a binge drink, has been drink alcohol last night, he denies illicit drugs. He complains of generalized body discomfort. Allergies: Coded Allergies: No Known Drug Allergies (Verified Allergy, Unknown, 01/15/19) Home Meds Active Scripts Eszopiclone (Lunesta) 2 Mg Tablet, 2 MG PO HS PRN for SLEEP, #15 TAB 0 Refills Prov:WENCESLAO WINCHESTER MD 09/19/24 Pantoprazole Sodium (Protonix) 40 Mg Tablet.dr, 40 MG PO DAILY for 30 Days, #30 TAB 0 Refills Prov:OBIE MUHAMMAD MD 07/23/21 Ondansetron (Ondansetron Odt) 4 Mg Tab.rapdis, 4 MG PO TIDP PRN for NAUSEA/VOMITING, #12 TAB 0 Refills Prov:OBIE MUHAMMAD MD 07/23/21 Past Medical History Past Medical History: GERD, Other Additional Past Medical Hx: ALCOHOLISM Surgical History: Tonsillectomy Family History: Negative Social History: ETOH, Other Review of System Dictation NEGATIVE EXCEPT PER HPI Constitutional: Reports feeling well, generalized body discomfort Eyes: Negative for injury, pain,redness, and discharge ENT: Negative for injury,pain or swelling Cardiovascular: denies chest pain, palpitations, and edema Respiratory: Negative for shortness of breath, cough, and wheezing, Abdomen/GI: Negative for abdominal pain, nausea, vomiting, diarrhea, and constipation Back: Negative for injury and pain : Negative for injury, bleeding and discharge MS/Extremity: Negative for injury and deformity Skin: Negative for rash, and discoloration Neuro: Negative for headache, weakness, numbness, tingling, and seizure Psych: Negative for suicide ideation, homicidal ideation, and hallucinations Initial Vital Sign VS Vital Signs Date Time Temp Pulse Resp B/P (MAP) Pulse Ox O2 Delivery O2 Flow Rate FiO2 11/21/24 04:54 98.1 115 18 136/97 95 0 11/21/24 05:06 Room Air* 21 Physical Exam Dictation General: awake, alert, disheveled, drunk Head/Face: Normocephalic, atraumatic Eyes: PERRL, EOMI, vision at baseline ENT: oral cavity clear, TMs clear, no signs of infection Neck: Trachea midline, supple, no nuchal rigidity Cardiovascular: RRR, normal S1/S2, No MRGs, no JVD Respiratory: CTAB, no respiratory distress, No rales or wheezes Abdomen: Soft , no tender Skin: Warm, dry, normal turgor, no rash MS/Extremity: Pulses equal, no cyanosis, neurovascular intact, FROM Neuro: COAx4, GCS 15, strength 5/5, CN 2-12 intact, normal cerebellar exam, normal gait, Psych: Normal behavior, mood, and affect normal Results (Laboratory/Radiology) Laboratory/Radiology Laboratory Tests Test 11/21/24 05:04 11/21/24 05:11 White Blood Count 7.0 K/uL (4.8-10.8) Red Blood Count 6.32 MIL/uL (4.50-6.20) H Hemoglobin 18.9 g/dL (14.0-18.0) H Hematocrit 51.3 % (42-54) Mean Corpuscular Volume 81.2 fL (79-99) Mean Corpuscular Hemoglobin 29.9 pg (27.0-33.0) Mean Corpuscular Hemoglobin Concent 36.8 g/dL (32.0-36.0) H Red Cell Distribution Width 13.2 % (11.0-15.5) Platelet Count 250 K/uL (130-400) Mean Platelet Volume 10.2 fL (7.5-10.5) Immature Granulocyte % (Auto) 0.1 % (0-1) Neutrophils (%) (Auto) 32.3 % (40.0-77.0) L Lymphocytes (%) (Auto) 52.7 % (21.0-51.0) H Monocytes (%) (Auto) 12.6 % (3.0-13.0) Eosinophils (%) (Auto) 0.3 % (0.0-8.0) Basophils (%) (Auto) 2.0 % (0.0-5.0) Neutrophils # (Auto) 2.3 K/uL (1.8-7.7) Lymphocytes # (Auto) 3.7 K/uL (1.0-4.8) Monocytes # (Auto) 0.9 K/uL (0.1-1.0) Eosinophils # (Auto) 0.02 K/uL (0.00-0.70) Basophils # (Auto) 0.14 K/uL (0.00-0.20) Absolute Immature Granulocyte (auto 0.01 K/uL (0-1) Nucleated Red Blood Cells 0.0 % (0.0-0.19) Red Blood Cell Morphology ANISO 1+ Sodium Level 134 mmol/L (136-145) L Potassium Level 2.9 mmol/L (3.5-5.1) *L Chloride Level 90 mmol/L (101-111) *L Carbon Dioxide Level 26 mmol/L (21-32) Blood Urea Nitrogen 12 mg/dL (7-18) Creatinine 1.0 mg/dL (0.5-1.3) Glomerular Filtration Rate Calc 105 mL/min (>90) Random Glucose 110 mg/dL (70-105) H Total Calcium 7.8 mg/dL (8.5-10.1) L Serum Alcohol 269 mg/dL (0-10) H Urine Opiates Screen NEGATIVE (NEGATIVE) Urine Barbiturates Screen NEGATIVE (NEGATIVE) Urine Phencyclidine Screen NEGATIVE (NEGATIVE) Urine Amphetamines Screen NEGATIVE (NEGATIVE) Urine Benzodiazepines Screen NEGATIVE (NEGATIVE) Urine Cocaine Screen NEGATIVE (NEGATIVE) Urine Marijuana (THC) Screen NEGATIVE (NEGATIVE) ED Course ED Course Orders Procedure Category Date Status Time Alcohol, Blood LAB 11/21/24 Complete 05:06 Drug Screen Urine LAB 11/21/24 Complete 05:06 Cbc With Differential LAB 11/21/24 Complete 05:06 Basic Metabolic Panel LAB 11/21/24 Complete 05:06 Ondansetron 4mg Inj PHA 11/21/24 Complete (Zofran 4mg Inj) 05:30 0.9%Nacl 1000ml (Ns PHA 11/21/24 Complete 1000ml) 05:30 Thiamine Hcl (Vitamin PHA 11/21/24 Complete B-1) 05:30 Etoh Alcohol TRENA 11/21/24 Complete Withdrawal Ords 05:38 Chlordiazepoxide Hcl PHA 11/21/24 Complete 25 Mg Cap (Librium 06:00 Thiamine Hcl (Vitamin PHA 11/21/24 Complete B-1)... 06:00 Pharmacy PHA 11/21/24 Complete Communication 06:00 Use The [facility] CPOE 11/21/24 Transmitted Assmt. Tool 05:38 Assess The Need For CPOE 11/21/24 Transmitted Seizure & 05:38 Vs Per Unit Routine & CPOE 11/21/24 Transmitted With 05:38 Document Etoh CPOE 11/21/24 Transmitted Withdrawal Score 05:38 Diazepam 5 Mg/Ml 2 Ml PHA 11/21/24 Complete Syg (Valium 5 Mg/M 06:00 Potassium Chloride PHA 11/21/24 Complete 10meq/100ml ([place] 06:00 0.9%Nacl 1000ml (Ns PHA 11/21/24 Complete 1000ml) 06:30 Potassium Chloride PHA 11/21/24 Complete 10meq/100ml ([place] 06:30 Diazepam 5 Mg/Ml 2 Ml PHA 11/21/24 Complete Syg (Valium 5 Mg/M 05:52 Potassium Chloride PHA 11/21/24 Complete 10meq/100ml ([place] 05:53 Current Medications Medications (Trade) Dose Ordered Sig/Moncho Route PRN Reason Start Time Stop Time Status Last Admin Dose Admin Chlordiazepoxide HCl (LIBrium 25 MG CAP) 25 mg Q2H PRN PO ALCOHOL WITHDRAWAL PROTOCOL 11/21/24 06:00 11/21/24 09:33 DC 11/21/24 08:13 Diazepam (VALium 5 MG/ML 2 ML SYG) 10 mg Q4H PRN IVP ALCOHOL WITHDRAWAL PROTOCOL 11/21/24 06:00 11/21/24 09:33 DC 11/21/24 05:59 Diazepam (VALium 5 MG/ML 2 ML SYG) 10 mg STK-MED ONCE .ROUTE 11/21/24 05:52 11/21/24 06:28 DC Ondansetron HCl (zoFRAN 4MG INJ) 4 mg ONCE ONCE IVP 11/21/24 05:30 11/21/24 05:31 DC 11/21/24 05:18 Pharmacy Profile Note (Pharmacy Communication) 1 each PROTOCOL PRN MISC ETOH Withdrawal Score changes 11/21/24 06:00 11/21/24 05:46 DC Potassium Chloride 100 ml @ 100 mls/hr ONCE ONCE IV 11/21/24 06:00 11/21/24 06:59 DC 11/21/24 05:54 Potassium Chloride 100 ml @ 100 mls/hr ONCE ONCE IV 11/21/24 06:30 11/21/24 07:29 DC 11/21/24 08:14 Potassium Chloride 100 ml @ As Directed STK-MED ONCE IV 11/21/24 05:53 11/21/24 06:28 DC Sodium Chloride 1,000 ml @ 0 mls/hr ONCE ONCE IV 11/21/24 05:30 11/21/24 05:31 DC 11/21/24 05:19 Sodium Chloride 1,000 ml @ 500 mls/hr Q2H IV 11/21/24 06:30 11/21/24 09:33 DC 11/21/24 08:31 Thiamine HCl (Vitamin B-1) 100 mg ONCE ONCE IVP 11/21/24 05:30 11/21/24 05:31 DC 11/21/24 05:19 Thiamine HCl 100 mg/Folic Acid 1 mg/Multivitamins/ Minerals 10 ml/ Sodium Chloride 1,011.2 ml @ 100 mls/ hr Q24H IV 11/21/24 06:00 11/21/24 09:33 DC 11/21/24 06:14 Vital Signs Date Time Temp Pulse Resp B/P (MAP) Pulse Ox O2 Delivery O2 Flow Rate FiO2 11/21/24 07:22 96 20 132/90 97 Room Air* 0 21 11/21/24 06:44 100 16 139/90 98 Room Air* 0 11/21/24 05:06 98.1 121 19 140/86 98 Room Air* 0 11/21/24 04:54 98.1 115 18 136/97 95 0 Medical Decision Making MDM 29-year-old male brought by EMS to the emergency department due to not feeling well, patient is a intoxicated, said that he has a alcohol binge drinking person. Alcohol intoxication Possible illicit drug intoxication Dehydration Laboratory workup ordered including CBC, BNP, drug screen, alcohol level. Potassium level 2.9. Ordered: IV potassium replacement IV fluids ordered 2 L Thiamine 100 mg IV Zofran 4 mg IV ordered [facility] protocol Patient he will be re-evaluate. Patient handed off at shift change was intoxicated vital signs stable in room however patient eloped on his own, welfare check recommended DX & DISP Disposition: Other(Comment) Departure Impression: Primary Impression: Alcohol intoxication Condition: Stable Referrals: MAKAYLA ANTHONY DO (PCP) EBEN WEST MD Nov 21, 2024 05:21 ESTRADA MARTINEZ MD Nov 21, 2024 18:23
[2024-11-21 05:26] LABS: AMPHET/METH SCREEN,URINE NEGATIVE (NEGATIVE); BARBITURATE SCREEN, URINE NEGATIVE (NEGATIVE); CANNABINOID SCREEN,URINE NEGATIVE (NEGATIVE); COCAINE SCREEN,URINE NEGATIVE (NEGATIVE)
[2024-11-21] MEDS ORDERED: PHARMACY COMMUNICATION MISC PRN (06:00)
[2024-11-21] MEDS: THIAMINE HCL 100 MG, FOLic ACID 5 MG/ML VIAL 1 MG, M.V.I. IV [ADULT] 10 ML in 0.9%NACL ... IV SCH (06:14)
[2024-11-21] MEDS: 0.9%NACL 1000ML 1,000 ML IV SCH (06:54)
--- NOTE | 2024-11-21 07:10 | NUR ---
CARE TRANSFERRED TO [facility]EN[facility] WEST
[2024-11-21 07:22] VITALS: BP 132/90; PULSE 96; RESP 20; O2SAT 97
--- NOTE | 2024-11-21 09:00 | NUR ---
PT WANTING TO LEAVE AND REQUESTING FOR IV TO BE DISCONTINUED. PT INFORMED OF ETOH AND ADVISED NOT TO LEAVE UNLESS FAMILY ABLE TO COME PICK HIM UP, PT STATES HE DOES NOT HAVE ANYONE TO PROVIDE TRANSPORTION AT THIS TIME. ER PROVIDER MADE AWARE.
--- NOTE | 2024-11-21 09:26 | NUR ---
PT NO LONGER WANTING TO STAY. ADVISED IF HE LEAVES [facility] WOULD BE NOTIFIED DUE TO INTOXICATION, PT VERBALIZED UNDERSTANDING. IV DISCONTINUED AND ER PROVIDER DR MARTINEZ MADE AWARE.
--- NOTE | 2024-11-21 09:30 | NUR ---
[facility] REPORT MADE AND THEY WILL FOLLOW UP.
== END 2024-11-21 09:33 | disposition left against medical advice (07) ==
LOC: EDH 04:53
DX: F10.229 Alcohol dependence with intoxication, unspecified (principal); Z79.899 Other long term (current) drug therapy; Z90.89 Acquired absence of other organs; Y90.8 Blood alcohol level of 240 mg/100 ml or more
CPT/HCPCS: 99284; 96365; 96375; 96361 ×2; 80048; 80305; 85025; 36415; J7030 ×2; J3360; J3411 ×2; J2405; J3490; J3480 ×2

== ENCOUNTER 2024-12-04 06:28 | Emergency (ER) | payer SELFPAY ==
[~2024-12-04] VITALS: Ht 175.3 cm; Wt 72.6 kg
[2024-12-04] MEDS ORDERED: COMPOUND IV REFRIGERATED 1 EACH IVSOLN MISC PRN (07:00)
--- NOTE | 2024-12-04 07:26 | ERN ---
General Chief Complaint: Abdominal Pain Stated Complaint: ABDOMINAL PAIN Time Seen by MD: 07:21 History of Present Illness Initial Comments 29-year-old male brought in by EMS from home for vomiting and alcohol withdrawal. Patient has a history of alcohol abuse. He has been bingeing alcohol for about two weeks. He has stopped drinking about 36 hours ago. He reports that since then he has been throwing up consistently. He has some epigastric pain and discomfort. He feels shaky. No delirium, hallucinations, or seizures. He reports he does have a history of a gastric ulcer. He comes in tachycardic with a heart rate in the 120s per EMS, GCS of 15. EMS gave 500 cc of fluid and Zofran. Allergies: Coded Allergies: No Known Drug Allergies (Verified Allergy, Unknown, 01/15/19) Home Meds Active Scripts Eszopiclone (Lunesta) 2 Mg Tablet, 2 MG PO HS PRN for SLEEP, #15 TAB 0 Refills Prov:WENCESLAO WINCHESTER MD 09/19/24 Pantoprazole Sodium (Protonix) 40 Mg Tablet.dr, 40 MG PO DAILY for 30 Days, #30 TAB 0 Refills Prov:OBIE MUHAMMAD MD 07/23/21 Ondansetron (Ondansetron Odt) 4 Mg Tab.rapdis, 4 MG PO TIDP PRN for NAUSEA/VOMITING, #12 TAB 0 Refills Prov:OBIE MUHAMMAD MD 07/23/21 Past Medical History Past Medical History: Alcoholism, GERD, Other Medical History Other: ALCOHOLISM Past Surgical History: Tonsillectomy Family History Family History: Negative Social History Social History: ETOH, Other ROS Dictation CONSTITUTIONAL: Weakness chills tremors HEAD/FACE: No signs of trauma. EENT: No eye pain, no blurred vision, no tearing, no double vision, no ear pain, no ear discharge, no nose pain, no nasal congestion, no throat pain, no throat swelling, no mouth pain. RESPIRATORY: No cough, no orthopnea, no SOB, no stridor, no wheezing. CARDIOVASCULAR: No chest pain, no edema, no palpitations, no syncope. GASTROINTESTINAL/ABDOMINAL: Epigastric pain and vomiting no diarrhea GENITOURINARY: No abnormal discharge, no dysuria, no frequent urination, no hematuria. No complaints of pain in the genitals. MUSCULOSKELETAL: No back pain, no gout, no joint pain, no joint swelling, no muscle pain, no muscle stiffness, no neck pain. INTEGUMENTARY: No change in color, no change in hair/nails, no dryness, no lesion, no lumps, no rash. NEUROLOGICAL/PSYCH: No anxiety, not depressed, no emotional problem, no headache, no numbness, no pre-existing deficit, no history of seizures, no tremors, no weakness. HEMATOLOGIC/LYMPHATIC: Not anemic, no history of blood clots, no apparent bleeding, no bruising, glands not swollen. All Systems Negative, Except as Noted. Physical Exam Physical Exam Dictation VITAL SIGNS: Reviewed. GENERAL APPEARANCE: Alert, oriented x3, moderate distress, tremors HEAD AND FACE: Non-traumatic. EYES: PERRL, pink conjunctivas, eyelid no trauma, anterior chamber clear. EARS: Pinnas intact and no signs of trauma or erythema. Ear canals clear and no discharge. TMs no erythema. NOSE: No discharge, no bleeding. OROPHARYNX: Mouth normal, teeth no caries, tongue pink. Pharynx clear, no erythema. Tonsils no exudates, no abscesses noted. Mucous membrane moist. NECK: Supple, non-tender, no thyromegaly, no masses, no JVD, no bruits. BREAST: Deferred. CHEST: No tenderness, no crepitus, no paradoxical movement, no retractions. LUNGS: Clear, well-ventilated, symmetric, no rales, no wheezing, no rhonchi, no stridor, good breath sounds bilaterally. HEART: Regular rate, regular rhythm, no murmur, no gallops. VASCULAR: No peripheral edema. ABDOMEN: Soft, mild tenderness to the left upper abdomen RECTAL: Deferred. GENITAL: Deferred. NEUROLOGICAL: Normal speech, gross motor function intact, gross sensory fu nction intact. MUSCULOSKELETAL: Neck nontender, full range of motion, back nontender, full range of motion. EXTREMITIES: Nontender, full range of motion. SKIN: Color pink, dry, no turgor, no rash, no lacerations, no abrasions, no contusions. LYMPHATICS: Deferred. Results Laboratory and Microbiology Lab and Micro Result Laboratory Tests Test 12/04/24 08:32 12/04/24 08:39 White Blood Count 2.6 K/uL (4.8-10.8) L Red Blood Count 5.20 MIL/uL (4.50-6.20) Hemoglobin 15.5 g/dL (14.0-18.0) Hematocrit 45.1 % (42-54) Mean Corpuscular Volume 86.7 fL (79-99) Mean Corpuscular Hemoglobin 29.8 pg (27.0-33.0) Mean Corpuscular Hemoglobin Concent 34.4 g/dL (32.0-36.0) Red Cell Distribution Width 14.0 % (11.0-15.5) Platelet Count 391 K/uL (130-400) Mean Platelet Volume 9.2 fL (7.5-10.5) Immature Granulocyte % (Auto) 0.0 % (0-1) Neutrophils (%) (Auto) 56.1 % (40.0-77.0) Lymphocytes (%) (Auto) 33.5 % (21.0-51.0) Monocytes (%) (Auto) 7.7 % (3.0-13.0) Eosinophils (%) (Auto) 0.4 % (0.0-8.0) Basophils (%) (Auto) 2.3 % (0.0-5.0) Neutrophils # (Auto) 1.5 K/uL (1.8-7.7) L Lymphocytes # (Auto) 0.9 K/uL (1.0-4.8) L Monocytes # (Auto) 0.2 K/uL (0.1-1.0) Eosinophils # (Auto) 0.01 K/uL (0.00-0.70) Basophils # (Auto) 0.06 K/uL (0.00-0.20) Absolute Immature Granulocyte (auto 0.00 K/uL (0-1) Segmented Neutrophils % 59 % (40-70) Lymphocytes % (Manual) 35 % (22-44) Monocytes % (Manual) 3 % (2-9) Basophils % (Manual) 1 % (0-2) Nucleated Red Blood Cells 0.0 % (0.0-0.19) Differential Comment MANUAL DIFFERENTIAL Reactive Lymphocytes 2 % (0-0) H White Cell Morphology Comment Platelet Morphology Comment ADEQUATE Red Blood Cell Morphology NORMAL Sodium Level 134 mmol/L (136-145) L Potassium Level 3.4 mmol/L (3.5-5.1) L Chloride Level 95 mmol/L (101-111) L Carbon Dioxide Level 23 mmol/L (21-32) Blood Urea Nitrogen 13 mg/dL (7-18) Creatinine 0.8 mg/dL (0.5-1.3) Glomerular Filtration Rate Calc 124 mL/min (>90) Random Glucose 139 mg/dL (70-105) H Total Calcium 8.1 mg/dL (8.5-10.1) L Magnesium Level 2.00 mg/dL (1.80-2.40) Total Bilirubin 0.7 mg/dL (0.2-1.0) Direct Bilirubin 0.3 mg/dL (0.0-0.3) Aspartate Amino Transf (AST/SGOT) 62 U/L (10-37) H Alanine Aminotransferase (ALT/SGPT) 117 U/L (12-78) H Alkaline Phosphatase 147 U/L (50-136) H Ammonia 36 umol/L (11-32) H Total Protein 7.1 g/dL (6.0-8.3) Albumin 3.3 g/dL (3.5-5.0) L Lipase 51 U/L (16-77) Serum Alcohol 244 mg/dL (0-10) H Urine Color LIGHT-YELLOW (YELLOW) Urine Appearance CLEAR (CLEAR) Urine pH 7.0 (5.0-8.0) Urine Specific [place] 1.017 (1.001-1.031) Urine Protein NEGATIVE mg/dL (NEGATIVE) Urine Glucose (UA) NEGATIVE mg/dL (NEGATIVE) Urine Ketones NEGATIVE mg/dL (NEGATIVE) Urine Occult Blood NEGATIVE (NEGATIVE) Urine Nitrate NEGATIVE (NEGATIVE) Urine Bilirubin NEGATIVE mg/dL (NEGATIVE) Urine Urobilinogen 0.2 mg/dL (0.2-1.0) Urine Leukocyte Esterase NEGATIVE Scott/uL MDM CC: ETOH abuse, abd pain, vomiting, withdrawal symptoms Historian: patient Comorbidities: ETOH abuse, gastritis Limitations: uninsured, ETOH abuse Ddx: ESPERANZA, gastritis, pancreatitis, dehydration, electrolyte abnormailty VS: Initially heart rate 128, improved in the ER. Blood pressure stable other than mild hypertension 142/99. Afebrile. Labs show leukopenia no shift or bands no anemia. Chemistry shows mild dehydration renal functions normal he does have a transaminitis lipase is normal. UA is negative. Alcohol 244. He was having significant abdominal pain on arrival, you did get a CT scan of t he abdomen and pelvis which did not show any acute pathology. Patient received IV fluids, banana bag, IV Valium, Toradol, Zofran. Re-evaluation patient reports that he is feeling better and he wants to go home. He is having no delirium. He is GCS 15. He is mildly tachycardic. I offered further observation and treatment here in the ER, but he reports that he wants to go home. We will DC. ED Course Orders Procedure Category Date Status Time Alcohol, Blood LAB 12/04/24 Complete 06:49 Ammonia LAB 12/04/24 Complete 06:49 Cbc With Differential LAB 12/04/24 Complete 06:49 Basic Metabolic Panel LAB 12/04/24 Complete 06:49 Magnesium LAB 12/04/24 Complete 06:49 Lipase LAB 12/04/24 Complete 06:49 M.V.I. Iv [Adult] PHA 12/04/24 In Process (M.V.I. Iv [Adult])... 07:30 Ketorolac PHA 12/04/24 Complete Tromethamine 15mg/Ml 07:00 Ondansetron 4mg Inj PHA 12/04/24 Complete (Zofran 4mg Inj) 07:00 Pantoprazole 40mg Inj PHA 12/04/24 Complete (Protonix 40mg Inj 07:00 Compound Iv PHA 12/04/24 In Process Refrigerated 07:00 Diazepam 5 Mg/Ml 2 Ml PHA 12/04/24 Complete Syg (Valium 5 Mg/M 07:30 Ct Abdomen/Pelvis CT 12/04/24 Resulted W/Contrast 07:21 Hepatic Function Panel LAB 12/04/24 Complete 07:43 Manual Differential LAB 12/04/24 Complete 08:32 Iohexol (Omnipaque) PHA 12/04/24 Complete 08:52 Urinalysis Profile LAB 12/04/24 Complete 08:54 Current Medications Medications (Trade) Dose Ordered Sig/Moncho Route PRN Reason Start Time Stop Time Status Last Admin Dose Admin Diazepam (VALium 5 MG/ML 2 ML SYG) 10 mg ONCE ONCE IVP 12/04/24 07:30 12/04/24 07:31 DC 12/04/24 08:31 Iohexol (Omnipaque) 75 ml STK-MED ONCE IV 12/04/24 08:52 12/04/24 08:52 DC Ketorolac Tromethamine (toRADol) 15 mg ONCE ONCE IV 12/04/24 07:00 12/04/24 07:01 DC 12/04/24 08:30 Multivitamins/ Minerals 10 ml/ Folic Acid 1 mg/ Thiamine HCl 100 mg/Sodium Chloride 1,010 ml @ 100 mls/hr Q24H IV 12/04/24 07:30 12/06/24 17:35 12/04/24 08:31 Ondansetron HCl (zoFRAN 4MG INJ) 4 mg ONCE ONCE IVP 12/04/24 07:00 12/04/24 07:01 DC 12/04/24 08:31 Pantoprazole Sodium (PROTonix 40MG INJ) 40 mg ONCE ONCE IVP 12/04/24 07:00 12/04/24 07:01 DC 12/04/24 08:31 Vital Signs Date Time Temp Pulse Resp B/P (MAP) Pulse Ox O2 Delivery O2 Flow Rate FiO2 12/04/24 09:35 98.4 106 20 142/99 99 Room Air* 0 21 12/04/24 08:32 97.9 107 20 158/96 96 Room Air* 0 21 12/04/24 06:31 98.1 128 18 125/85 100 Room Air 0 DX & DISP Disposition: Discharge Departure Impression: Primary Impression: Alcohol intoxication Additional Impressions: Alcohol withdrawal, Alcoholic gastritis Condition: Stable Additional Instructions: Reduce alcohol intake. Follow up with your primary doctor. Consider an alcohol rehabilitation plan. Return to the ED as needed. Referrals: SELF,REFERRAL (PCP) ROB DUFF DO Dec 04, 2024 07:26
[2024-12-04] MEDS: M.V.I. IV [ADULT] 10 ML, FOLic ACID 5 MG/ML VIAL 1 MG, THIAMINE HCL 100 MG in 0.9%NACL ... IV SCH (08:31)
[2024-12-04 08:39] LABS: IMMATURE GRANULOCYTE ABSOLUTE 0.00 K/uL (0-1); NUCLEATED RED BLOOD CELLS 0.0 % (0.0-0.19); PLATELET COUNT (AUTO) 391 K/uL (130-400); RED BLOOD CELL COUNT(AUTO) 5.20 MIL/uL (4.50-6.20); RED CELL DISTRIBUTION WIDTH 14.0 % (11.0-15.5); WHITE BLOOD COUNT (AUTO) 2.6 K/uL (4.8-10.8)
[2024-12-04 08:48] LABS: CREATININE 0.8 mg/dL (0.5-1.3); GLOMERULAR FILTR. RATE CALC 124.0 mL/min (>90); GLUCOSE,RANDOM 139.0 mg/dL (70-105); SODIUM SERUM 134.0 mmol/L (136-145); UREA NITROGEN, BLOOD 13.0 mg/dL (7-18)
[2024-12-04 08:49] LABS: ALCOHOL, BLOOD 244.0 mg/dL (0-10)
[2024-12-04] MEDS ORDERED: IOHEXOL-350 75 ML VIAL IV ONE (08:52)
[2024-12-04 08:54] LABS: TOTAL PROTEIN, SERUM 7.1 g/dL (6.0-8.3)
[2024-12-04 09:07] LABS: ASPARTATE AMINOTRANSFERASE 62.0 U/L (10-37)
[2024-12-04 09:26] LABS: BASOPHILS % (MANUAL) 1 % (0-2); LYMPHOCYTES % (MANUAL) 35 % (22-44); MAN.DIFF COMMENT-IMPRESSION MANUAL DIFFERENTIAL; MONOCYTES % (MANUAL) 3 % (2-9); PLATELET MORPHOLOGY COMMENT ADEQUATE; REACTIVE LYMPHOCYTES 2 % (0-0); SEGMENTED NEUTROPHILS % 59 % (40-70)
[2024-12-04 09:35] VITALS: BP 142/99; PULSE 106; RESP 20; TEMP 98.5; O2SAT 99
[2024-12-04 10:28] LABS: APPEARANCE,URINE CLEAR (CLEAR); GLUCOSE, URINE (UA) NEGATIVE (NEGATIVE); LEUKOCYTE ESTERASE ,URINE NEGATIVE Leu/uL (NEGATIVE); NITRATE,URINE NEGATIVE (NEGATIVE); OCCULT BLOOD,URINE NEGATIVE (NEGATIVE)
--- NOTE | 2024-12-04 10:32 | NUR ---
INFORMED BY FUENTES INTERIM DIRECTOR AND BY VENDING ATTENDANT BAYLEE, PT ELOPED FROM FACILITY. PT EXITED BY EMS ENTRANCE. LEFT FACILITY WITHOUT IV INTACT. IV CATHETER SEEN ON BED AFTER ELOPEMENT.
--- NOTE | 2024-12-04 10:32 | HMCIMG ---
EXAM: CT Abdomen and Pelvis with IV contrast CLINICAL HISTORY: Epigastric pain. Vomiting. Etoh abuse. TECHNIQUE: Thin collimated axial CT images of the abdomen and pelvis with intravenous contrast were obtained with sagittal and coronal reformatted images also submitted. CT scan is done according to ALARA (As Low As Reasonably Achievable). COMPARISON: None. FINDINGS: Unremarkable visualized lung parenchyma. No focal abnormality within the gallbladder, pancreas, spleen, adrenals, or kidneys. Mild hepatomegaly with diffuse fatty infiltration. There is no obvious bowel wall thickening. Bowel loops are normal in caliber without evidence of obstruction or ileus. The appendix is normal. There is no abnormality within the urinary bladder. Unremarkable reproductive organs. Abdominal and pelvic vessels are patent. No lymphadenopathy. No free fluid. There is no acute osseous abnormality. IMPRESSIONS: No acute process in the abdomen or pelvis. Mild hepatomegaly with diffuse fatty infiltration. /Harmony
[2024-12-04 10:35] LABS: ADD UA MICROSCOPIC NO
== END 2024-12-04 11:50 | disposition left against medical advice (07) ==
LOC: EDH 06:28
DX: F10.229 Alcohol dependence with intoxication, unspecified (principal); F10.239 Alcohol dependence with withdrawal, unspecified; Z79.899 Other long term (current) drug therapy; Z90.89 Acquired absence of other organs; Y90.8 Blood alcohol level of 240 mg/100 ml or more
CPT/HCPCS: 99285; 74177; 96365; 96375; 96366; 80076; 83735; 80048; 82140; 83690; 85025; 81003; 36415; J1885; J7030; J3360; J3411; J2405; J3490; J2470; Q9967

== ENCOUNTER 2025-01-03 21:14 | Inpatient (IN) | payer SELFPAY ==
[~2025-01-03] VITALS: Ht 170.2 cm; Wt 83.0 kg
[~2025-01-03 21:14] MED LIST changes: -ONDA-243 PO; -PANT40TA PO
--- NOTE | 2025-01-03 21:20 | NUR ---
UA CUP PROVIDED
[2025-01-03 21:59] LABS: IMMATURE GRANULOCYTE ABSOLUTE 0.01 K/uL (0-1); NUCLEATED RED BLOOD CELLS 0.0 % (0.0-0.19); PLATELET COUNT (AUTO) 355 K/uL (130-400); RED BLOOD CELL COUNT(AUTO) 4.90 MIL/uL (4.50-6.20); RED CELL DISTRIBUTION WIDTH 13.5 % (11.0-15.5); WHITE BLOOD COUNT (AUTO) 4.9 K/uL (4.8-10.8)
[2025-01-03] MEDS: 0.9%NACL 1000ML 1,000 ML IV ONE ×2 (22:17→23:44)
[2025-01-03] MEDS: THIAMINE HCL 100 MG/ML 2ML VIAL IVP ONE (22:17)
[2025-01-03 22:32] LABS: CREATININE 1.0 mg/dL (0.5-1.3); GLOMERULAR FILTR. RATE CALC 105.0 mL/min (>90); GLUCOSE,RANDOM 104.0 mg/dL (70-105); SODIUM SERUM 142.0 mmol/L (136-145); UREA NITROGEN, BLOOD 9.0 mg/dL (7-18)
[2025-01-03 22:39] LABS: ALCOHOL, BLOOD 308.0 mg/dL (0-10); CREATINE KINASE, TOTAL 2262.0 U/L (21-232)
[2025-01-03 22:46] LABS: APPEARANCE,URINE CLEAR (CLEAR); GLUCOSE, URINE (UA) NEGATIVE (NEGATIVE); LEUKOCYTE ESTERASE ,URINE NEGATIVE Leu/uL (NEGATIVE); NITRATE,URINE NEGATIVE (NEGATIVE); OCCULT BLOOD,URINE NEGATIVE (NEGATIVE)
[2025-01-03 22:47] LABS: ADD UA MICROSCOPIC YES
[2025-01-03 22:49] LABS: SQUAMOUS EPITHELIAL CELL,UR RARE /HPF (0-2)
[2025-01-03 23:06] LABS: AMPHET/METH SCREEN,URINE NEGATIVE (NEGATIVE); BARBITURATE SCREEN, URINE NEGATIVE (NEGATIVE); CANNABINOID SCREEN,URINE NEGATIVE (NEGATIVE); COCAINE SCREEN,URINE NEGATIVE (NEGATIVE)
--- NOTE | 2025-01-03 23:29 | HP ---
History of Present Illness Reason for Visit: chest pain Referring MD: SELF History of Present Illness Mr. Andersen is a 29-year-old male that was seen and examined today on 01/03/2025. Patient is a good historian of personal health Patient reports that he came to the emergency department with a chief complaint of chest pain. Onset was 1800 today. Location is left-sided chest. Duration is on and off. Character is described as pressure. There was no alleviating factors. There was no aggravating factors. Patient denies any associated shortness of breath or dizziness. Today in the emergency department CBC unremarkable, CK 2262, urinalysis unremarkable, alcohol level 308. Emergency room physician recommended patient be admitted with a diagnosis of acute alcohol intoxication and rhabdomyolysis Past Medical History Patient History: Asthma BROTHER (Older brother has asthma) ADDITIONAL PAST MEDICAL HISTORY: [Denies] SOCIAL HISTORY: [Patient smokes one cigarette a month. Patient drinks alcohol once a month but he drinks very heavy on that day such as today typically this will consist of nine beers that are 24 oz each and one pt of vodka. Patient denies any drug use. Patient lives with his dad, Imtiaz Kenny. Patient is t ypically independent of all his ADLs. Patient denies difficulty pain is bills.] SURGICAL HISTORY: [Tonsillectomy] Review of Systems General: No Fever, No Chills, No Night Sweats, No Fatigue, No Malaise, No Appetite, No Other HEENT: No Head Aches, No Visual Changes, No Eye Pain, No Ear Pain, No Dysp hasia, No Sinus Congestion, No Post Nasal Drip, No Sore Throat, No Other Pulmonary: No Dyspnea, No Cough, No Pleuritic Chest Pain, No Other Cardiovascular: Chest Pain; No: Palpitations, Orthopnea, Paroxysmal Noc. Dyspnea, Edema, Lt Headedness, Other Gastrointestinal: No: Nausea, Vomiting, Abdominal Pain, Diarrhea, Constipation, Melena, Hematochezia, Other Genitourinary: No Dysuria, No Frequency, No Incontinence, No Hematuria, No Retention, No Other Musculoskeletal: No: other, neck pain, shoulder pain, arm pain, back pain, hand pain, leg pain, foot pain Skin: No Urticaria, No Rash, No Other Neurological: No: Weakness, Numbness, Incoordination, Change in speech, Confusion, Seizures, Other Allergies: Coded Allergies: No Known Drug Allergies (Verified Allergy, Unknown, 01/15/19) Scheduled PRN Eszopiclone (Lunesta), 2 MG PO HS PRN for SLEEP Exam Vital Signs Vital Signs Date Time Temp Pulse Resp B/P (MAP) Pulse Ox O2 Delivery O2 Flow Rate FiO2 01/03/25 21:59 99.0 92 18 122/ 99 Room Air* 0 21 General Appearance: Alert, Oriented X3, Cooperative, No acute distress HEENT: Atraumatic, EOMI, Mucous membr. moist/pink Respiratory: Clear to auscultation, Normal air movement, NL respiratory effort Cardiovascular: Regular rate, Regular rhythm, Normal S1, Normal S2 Abdominal: Normal bowel sounds, Soft, No tenderness Extremities: No edema Skin: No significant lesion Neuro: Normal speech, Strength at 5/5 X4 ext, Sensation intact, Cranial nerves 3-12 NL Psych/Mental Status: Mental status NL, Mood NL, Thoughts/Content NL Assessment/Plan ASSESSMENT: [ Acute alcohol intoxication, POA Rhabdomyolysis, POA Chest pain, POA] PLAN: [ Admit patient to medical floor as inpatient status. Place patient on telemetry monitoring. Counseled patient on alcohol cessation. Librium 25 mgevery 2 hours as needed for withdrawal As needed Ativan for alcohol withdrawal 1 mg every 4 hours Use [facility] assessment tool Document EtOH withdrawal score Assess the need for seizure and aspiration precautions IV fluid maintenance therapy 0.9% NS at 100 mL/HR plus multivitamin, folic acid, thiamine per CILA protocol Monitor CK every 12 hours Administer aspirin 162 mg by mouth times 1 dose Continue aspirin 81 mg by mouth once daily Nitroglycerin sublingual 0.4 mg as needed for chest pain every 5 minutes, max 3 doses, hold for systolic blood pressure less than 100 mmHg. Trend troponin every 6 hours x 3 sets Supplemental oxygen to maintain O2 saturation greater than 92% Consult cardiology if any elevation in troponin or troponin uptrending, or if patient deemed to need stress test by daytime rouding service. GI prophylaxis, famotidine DVT prophylaxis, Lovenox ADVANCED CARE PLANNING 1. Which of the following were discussed? Hospice Care - Yes Therapeutic options - yes Advance Directives - Yes - patient states he does not have any advance directives in place at this time, however his father can make decisions for him if he becomes unable. Other discussions - patient wishes to remain a full code at this time 2. Discussed with who? Patient 3. Voluntary nature of this service was explained to the patient? Yes 4. Amount of time spent - ___16 minutes____ 5. Reviewed by Physician? (if this service was performed by NPP) Yes This document was generated in part using voice recognition software, occasional wrong word or sound alike substitutions may have occurred due to the inherent limitations of voice recognition software. Read the chart carefully and recognize using context, where the substitutions have occurred. Although every effort was made to edit the content, contact representative and typing errors may occur ATTESTATION BY PHYSICIAN I have seen and examined the patient. I reviewed the documentation, medical decision making, and treatment plan as noted by the mid-level provider above. I agree with the findings and plan of care.] CATHIE ANDERSEN [facility] Jan 03, 2025 23:29
[2025-01-03] MEDS ORDERED: PHARMACY COMMUNICATION MISC PRN (23:30)
[2025-01-03] MEDS ORDERED: LACTULOSE 20 GM/30 ML UDCUP PO PRN (23:30)
--- NOTE | 2025-01-03 23:41 | ERN ---
ED Note History of Present Illness Stated Complaint: CP Chief Complaint: Chest Pain Time Seen by MD: 21:19 Time Seen by Midlevel: 21:19 Dictation: The patient is a 29-year-old male with a history of alcoholism who presents to the emergency department with complaints of left-sided chest pain onset 3 hours ago. Patient denies any trauma, denies any cough or upper respiratory symptoms. Patient reports he has been drinking today. Patient reports he is a chronic alcoholic. When asked about what kind of alcohol he drinks he states whatever I can find but did not specified how much or what he drinks. Denies any drug use. Allergies: Coded Allergies: No Known Drug Allergies (Verified Allergy, Unknown, 01/15/19) Home Meds Active Scripts Eszopiclone (Lunesta) 2 Mg Tablet, 2 MG PO HS PRN for SLEEP, #15 TAB 0 Refills Prov:WENCESLAO WINCHESTER MD 09/19/24 Past Medical History Past Medical History: Alcoholism Additional Past Medical Hx: ALCOHOLISM Surgical History: Tonsillectomy Family History: Negative Social History: ETOH, Other RN Note Reviewed/Agreed w/PFSH: Yes Review of System Dictation Constitutional: Negative for fever,chills, and weight loss Eyes: Negative for injury, pain,redness, and discharge ENT: Negative for injury,pain or swelling Cardiovascular: Negative for palpitations, and edema positive for chest pain Respiratory: Negative for shortness of breath, cough, and wheezing, Abdomen/GI: Negative for abdominal pain, nausea, vomiting, diarrhea, and constipation Back: Negative for injury and pain : Negative for injury, bleeding and discharge MS/Extremity: Negative for injury and deformity Skin: Negative for rash, and discoloration Neuro: Negative for headache, weakness, numbness, tingling, and seizure Psych: Negative for suicide ideation, homicidal ideation, and hallucinations Initial Vital Sign VS Vital Signs Date Time Temp Pulse Resp B/P (MAP) Pulse Ox O2 Delivery O2 Flow Rate FiO2 01/03/25 21:16 98.8 110 20 146/95 99 Room Air 01/03/25 21:59 0 21 Physical Exam Dictation Vital Signs reviewed General Appearance: Alert, oriented x 3, no acute distress, well developed, nourished. Head and Face: non-traumatic. Eyes: PERRL, pink conjunctivas, eyelid no trauma, anterior chamber with arcus senilis. Ears: Pinnas intact and no signs of trauma or erythema ear canals clear and no discharge TM no erythema Nose: No discharge, no bleeding. Oropharynx: Mouth normal, tongue pink. pharynx clear,no erythema, tonsils no exudates, no abscesses noted, mucous membrane moist Neck: Supple, non-tender, no thyromegaly, no masses, no JVD, no bruits Breast:Deferred Chest:No tenderness, no crepitus, no paradoxical movement, no retractions Lungs:Clear, well-ventilated, symmetric, no rales, no wheezing, no rhonchi, no stridor, good breath sounds bilaterally Heart: Regular rate, regular rhythm, no murmur, no gallops Vascular: no peripheral edema, Abdomen: Soft, positive bowel sounds, nondistended, no guarding, nontender, no rebound, no masses no hepatomegaly, no splenomegaly, no Maria's sign, no hernias. Rectal: Deferred Genital: Deferred Neurological: Normal speech, motor function intact, sensory function intact Musculoskeletal: Neck nontender, full range of motion, back nontender, full range of motion, Extremities: nontender, full range of motion Skin: Color pink, dry, no turgor, no rash, no lacerations, no abrasions, no contusions. Lymphatic: Deferred Results (Laboratory/Radiology) Laboratory/Radiology Laboratory Tests Test 01/03/25 21:29 01/03/25 21:36 Urine Color YELLOW (YELLOW) Urine Appearance CLEAR (CLEAR) Urine pH 6.0 (5.0-8.0) Urine Specific [place] 1.022 (1.001-1.031) Urine Protein 20 mg/dL (NEGATIVE) H Urine Glucose (UA) NEGATIVE mg/dL (NEGATIVE) Urine Ketones NEGATIVE mg/dL (NEGATIVE) Urine Occult Blood NEGATIVE (NEGATIVE) Urine Nitrate NEGATIVE (NEGATIVE) Urine Bilirubin NEGATIVE mg/dL (NEGATIVE) Urine Urobilinogen 0.2 mg/dL (0.2-1.0) Urine Leukocyte Esterase NEGATIVE Scott/uL Urine RBC 0-1 /HPF (0-1) Urine WBC 2-5 /HPF (0-1) H Urine Squamous Epithelial Cells RARE /HPF (0-2) Urine Bacteria RARE /HPF (None Seen) Urine Opiates Screen NEGATIVE (NEGATIVE) Urine Barbiturates Screen NEGATIVE (NEGATIVE) Urine Phencyclidine Screen NEGATIVE (NEGATIVE) Urine Amphetamines Screen NEGATIVE (NEGATIVE) Urine Benzodiazepines Screen NEGATIVE (NEGATIVE) Urine Cocaine Screen NEGATIVE (NEGATIVE) Urine Marijuana (THC) Screen NEGATIVE (NEGATIVE) White Blood Count 4.9 K/uL (4.8-10.8) Red Blood Count 4.90 MIL/uL (4.50-6.20) Hemoglobin 14.7 g/dL (14.0-18.0) Hematocrit 43.2 % (42-54) Mean Corpuscular Volume 88.2 fL (79-99) Mean Corpuscular Hemoglobin 30.0 pg (27.0-33.0) Mean Corpuscular Hemoglobin Concent 34.0 g/dL (32.0-36.0) Red Cell Distribution Width 13.5 % (11.0-15.5) Platelet Count 355 K/uL (130-400) Mean Platelet Volume 9.8 fL (7.5-10.5) Immature Granulocyte % (Auto) 0.2 % (0-1) Neutrophils (%) (Auto) 37.8 % (40.0-77.0) L Lymphocytes (%) (Auto) 50.2 % (21.0-51.0) Monocytes (%) (Auto) 10.0 % (3.0-13.0) Eosinophils (%) (Auto) 1.0 % (0.0-8.0) Basophils (%) (Auto) 0.8 % (0.0-5.0) Neutrophils # (Auto) 1.8 K/uL (1.8-7.7) Lymphocytes # (Auto) 2.5 K/uL (1.0-4.8) Monocytes # (Auto) 0.5 K/uL (0.1-1.0) Eosinophils # (Auto) 0.05 K/uL (0.00-0.70) Basophils # (Auto) 0.04 K/uL (0.00-0.20) Absolute Immature Granulocyte (auto 0.01 K/uL (0-1) Nucleated Red Blood Cells 0.0 % (0.0-0.19) Sodium Level 142 mmol/L (136-145) Potassium Level 3.7 mmol/L (3.5-5.1) Chloride Level 103 mmol/L (101-111) Carbon Dioxide Level 28 mmol/L (21-32) Blood Urea Nitrogen 9 mg/dL (7-18) Creatinine 1.0 mg/dL (0.5-1.3) Glomerular Filtration Rate Calc 105 mL/min (>90) Random Glucose 104 mg/dL (70-105) Total Calcium 8.6 mg/dL (8.5-10.1) Total Creatine Kinase 2262 U/L (21-232) #*H Troponin I High Sensitivity 6 ng/L (4-75) Lipase 31 U/L (16-77) Serum Alcohol 308 mg/dL (0-10) H Labs Reviewed?: Yes EKG: (+) rhythm (Sinus tachycardia) EKG Comment: Date:01/03/2025 Time:2113 Ventricular rate:106 HI interval:138 QRS duration:78 QT/QTc:327/434 EKG interpretation: Sinus tachycardia Reviewed by ED Attending no STEMI ED Course ED Course Orders Procedure Category Date Status Time Vital Signs Per CPOE 01/03/25 Transmitted Routine 21:16 Chest 1vw RAD 01/03/25 Taken 21:16 12 Lead Ekg Tracing- EKG 01/03/25 Logged Technical 21:16 Oxygen By Nc/Pulse Ox CPOE 01/03/25 Transmitted 21:16 Maintain Iv CPOE 01/03/25 Transmitted 21:16 Iv Insertion CPOE 01/03/25 Transmitted 21:16 Cardiac Monitoring CPOE 01/03/25 Transmitted 21:16 Pulse Oximetry With CPOE 01/03/25 Transmitted Vs And Prn 21:16 Cbc With Differential LAB 01/03/25 Complete 21:16 Activity: Br W/Brp CPOE 01/03/25 Transmitted With Assist 21:16 Creatine Kinase, Total LAB 01/03/25 Complete 21:16 Troponin I High LAB 01/03/25 Complete Sensitivity 21:16 Urinalysis Profile LAB 01/03/25 Complete 21:16 Basic Metabolic Panel LAB 01/03/25 Complete 21:16 Drug Screen Urine LAB 01/03/25 Complete 21:16 Lipase LAB 01/03/25 Complete 21:16 Pantoprazole 40mg Inj PHA 01/03/25 Complete (Protonix 40mg Inj 22:00 0.9%Nacl 1000ml (Ns PHA 01/03/25 Complete 1000ml) 22:00 Thiamine Hcl (Vitamin PHA 01/03/25 Complete B-1) 22:00 Alcohol, Blood LAB 01/03/25 Complete 21:16 Admit Orders ADM 01/03/25 Transmitted 23:28 0.9%Nacl 1000ml (Ns PHA 01/03/25 Logged 1000ml) 23:30 Etoh Alcohol TRENA 01/03/25 In Process Withdrawal Ords 23:29 Chlordiazepoxide Hcl PHA 01/03/25 Logged 25 Mg Cap (Librium 23:30 Lorazepam 2 Mg PHA 01/03/25 Logged (Ativan) 23:30 Thiamine Hcl (Vitamin PHA 01/03/25 Logged B-1)... 23:30 Pharmacy PHA 01/03/25 Logged Communication 23:30 Use [facility] CPOE 01/03/25 Transmitted Assmt. Tool 23:29 Assess The Need For CPOE 01/03/25 Transmitted Seizure & 23:29 Vs Per Unit Routine & CPOE 01/03/25 Transmitted With 23:29 Document Etoh CPOE 01/03/25 Transmitted Withdrawal Score 23:29 Creatine Kinase, Total LAB 01/04/25 Verified 04:00 Creatine Kinase, Total LAB 01/04/25 Verified 16:00 Creatine Kinase, Total LAB 01/05/25 Verified 04:00 Creatine Kinase, Total LAB 01/05/25 Verified 16:00 Regular DIET 01/04/25 Transmitted Breakfast Basic Metabolic Panel LAB 01/04/25 Verified 04:00 Cbc With Differential LAB 01/04/25 Verified 04:00 Magnesium LAB 01/04/25 Verified 04:00 Phosphorus LAB 01/04/25 Verified 04:00 Fall Precautions CPOE 01/03/25 Transmitted 23:29 Acetaminophen 325 Tab PHA 01/03/25 Logged (Tylenol 325mg Tab 23:30 Enoxaparin Sodium 40 PHA 01/04/25 Logged Mg/0.4 Ml (Lovenox) 09:00 Famotidine 20mg Tab PHA 01/04/25 Logged (Pepcid 20mg Tab) 09:00 Hydralazine 20mg Inj PHA 01/03/25 Logged (Apresoline 20mg In 23:30 Lactulose 20 Gm/30 Ml PHA 01/03/25 Logged Udcup (Constulose 23:30 Morphine 4mg Syg PHA 01/03/25 Logged (Morphine 4mg Syg) 23:30 Ondansetron 4mg Inj PHA 01/03/25 Logged (Zofran 4mg Inj) 23:30 Current Medications Medications (Trade) Dose Ordered Sig/Moncho Route PRN Reason Start Time Stop Time Status Last Admin Dose Admin Acetaminophen (TYLenol 325MG TAB) 650 mg Q6H PRN PO TEMPERATURE GREATER THAN 101.5 01/03/25 23:30 02/02/25 23:29 UNV Chlordiazepoxide HCl (LIBrium 25 MG CAP) 25 mg Q2H PRN PO ALCOHOL WITHDRAWAL PROTOCOL 01/03/25 23:30 01/10/25 23:29 UNV Enoxaparin Sodium (Lovenox) 40 mg DAILY SQ 01/04/25 09:00 02/03/25 08:59 UNV Famotidine (Pepcid 20mg Tab) 20 mg DAILY PO 01/04/25 09:00 02/03/25 08:59 UNV Hydralazine HCl (APRESOLine 20MG INJ) 10 mg Q6H PRN IV For:SBP above 160;DBP above 90 01/03/25 23:30 02/02/25 23:29 UNV Lactulose (Constulose 20gm/ 30ml Udcup) 20 gm BID PRN PO CONSTIPATION 01/03/25 23:30 02/02/25 23:29 UNV Lorazepam (AtiVAN) 1 mg Q4H PRN IVP ALCOHOL WITHDRAWAL PROTOCOL 01/03/25 23:30 01/10/25 23:29 UNV Morphine Sulfate (morPHINE 4MG SYG) 2 mg Q4H PRN IVP SEVERE PAIN (7-10) 01/03/25 23:30 01/10/25 23:29 UNV Ondansetron HCl (zoFRAN 4MG INJ) 4 mg Q6H PRN IV NAUSEA/VOMITING 01/03/25 23:30 02/02/25 23:29 UNV Pantoprazole Sodium (PROTonix 40MG INJ) 40 mg ONCE ONCE IVP 01/03/25 22:00 01/03/25 22:13 DC 01/03/25 22:17 Pharmacy Profile Note (Pharmacy Communication) 1 each PROTOCOL PRN MISC ETOH Withdrawal Score changes 01/03/25 23:30 01/10/25 23:29 UNV Sodium Chloride 1,000 ml @ 0 mls/hr ONCE ONCE IV 01/03/25 22:00 01/03/25 22:13 DC 01/03/25 22:17 Sodium Chloride 1,000 ml @ 0 mls/hr ONCE ONCE IV 01/03/25 23:30 01/03/25 23:31 UNV Thiamine HCl (Vitamin B-1) 100 mg ONCE ONCE IVP 01/03/25 22:00 01/03/25 22:13 DC 01/03/25 22:17 Thiamine HCl 100 mg/Folic Acid 1 mg/Multivitamins/ Minerals 10 ml/ Sodium Chloride 1,011.2 ml @ 100 mls/ hr Q24H IV 01/03/25 23:30 01/06/25 09:37 UNV Vital Signs Date Time Temp Pulse Resp B/P (MAP) Pulse Ox O2 Delivery O2 Flow Rate FiO2 01/03/25 21:59 99.0 92 18 122/ 99 Room Air* 0 21 01/03/25 21:16 98.8 110 20 146/95 99 Room Air HEART Score Response (Comments) Value History: Low suspicion (0) 0 EKG: Normal 0 Age: < 45yrs (0) 0 Risk Factors: No known risk factors (0) 0 Initial Troponin: Normal limit (0) 0 HEART Score Risk: Low Risk for MACE (1-3) Total 0 Medical Decision Making MDM MDM: The patient is a 29-year-old male with a history of alcoholism who presents to the emergency department with complaints of left-sided chest pain onset 3 hours ago. Patient denies any trauma, denies any cough or upper respiratory symptoms. Patient reports he has been drinking today. Patient reports he is a chronic alcoholic. When asked about what kind of alcohol he drinks he states whatever I can find but did not specified how much or what he drinks. Denies any drug use. CBC showed no no leukocytosis, no anemia, chemistry showed no electrolyte imbalance, CK level of 2208, negative troponin, alcohol level of 308. Given patient's elevated CK level in history of alcohol abuse patient will be admitted for further treatment. Differential diagnosis: Alcohol intoxication, ACS, pneumonia, pneumothorax, electrolyte imbalance Comorbidities: Alcoholism Tests considered and not ordered secondary to shared decision making include: none Previous outside records reviewed: none Risk of complication and/or morbidity or mortality of patient management: The patient meets criteria for admission. Need for emergency major/minor surgery: No There are no social concerns with this patient. I independently interpreted the tests I ordered (labs, urinalysis, etc.). I discussed the case with the hospitalist for admission. Mike WALKER who accepts admission I discussed the case with the following specialists: none. Historian: pateint. I independently interpreted imaging studies and EKGs that I ordered (US, CT, XR, EKG, etc.). External chart review: none. Medical management and examination interpretation discussions were had by me with other qualified healthcare professionals as indicated for the patient's care. DX & DISP Disposition: Inpatient Decision to Admit Date: Jan 03, 2025 Decision to Admit Time: 23:41 Departure Impression: Primary Impression: Rhabdomyolysis Additional Impression: Alcohol intoxication Condition: Stable Referrals: SELF,REFERRAL (PCP) I have reviewed the case, and I agree with, Diagnosis and Plan TAI ALARCON Jan 03, 2025 23:41
[2025-01-04] MEDS ORDERED: NITROGLYCERIN 0.4 MG SL TAB SL PRN
[2025-01-04] MEDS: ASPIRIN 81MG CHEW TAB PO ONE (00:19)
--- NOTE | 2025-01-04 00:54 | HMCIMG ---
EXAM: CR Chest, 1 view CLINICAL HISTORY: Chest pain. COMPARISON: None provided. FINDINGS: The lungs show no infiltrates or other acute findings. No pleural effusion or pneumothorax. The cardiomediastinal silhouette is within normal limits. No acute osseous abnormality. IMPRESSION: No acute cardiopulmonary process is evident. /[place]
[2025-01-04] MEDS: THIAMINE HCL 100 MG, FOLic ACID 5 MG/ML VIAL 1 MG, M.V.I. IV [ADULT] 10 ML in 0.9%NACL ... IV SCH (01:02)
--- NOTE | 2025-01-04 05:55 | EKG ---
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
--- NOTE | 2025-01-04 07:29 | NUR ---
PT VERBALIZED ABOUT LEAVING THE HOSPITAL, RISKS WERE VEBALLY PROVIDED TO HIM ABOUT LEAVING BEFORE DISCHARGE ADMITING PHYSICAN.
[2025-01-04 07:48] VITALS: BP 127/75; PULSE 96; RESP 18; TEMP 98.4; O2SAT 96
--- NOTE | 2025-01-04 07:48 | NUR ---
PT JUST LEFT THROUGH THE EMS DOOR WITH A STEADY AND EVEN GAIT. DISPITE BEING MADE AWARE OF THE RISK OF LEAVING THE HOSPITAL. VITAL SIGNS WERE STABLE AND GCS OF 15. PT WAS MADE AWARE OF THE RISKS OF LEAVING WITH THE DIAGNOSIS OF RHABDOMYOLYSIS. IV WAS REMOVED AND INTACT. PT DID NOT WANT TO WAIT FOR THE ADMITING DR. TO COME AND SPEAK WITH HIM. PT VERBALIZED WANTING TO LEAVING AT THIS MOMENT. WITNESSES WERE JENNA NGO AND JENNA JOHNSON.
--- NOTE | 2025-01-04 08:29 | NUR ---
DR CRUZ WAS JUST NOW MADE AWARE THAT THE PT LEFT THE FACILITY DESPITE RISKS BEING PROVIDED TO HIM. SHE WAS INFORMED THE AMA FORM WAS NOT OBTAINED D/T HIS MEDICAL TEAM NOT HAVING PROVIDED THE RISKS THEMSELVES.
[2025-01-04] MEDS ORDERED: ASPIRIN 81 MG EC TAB PO SCH (09:00)
[2025-01-04] MEDS ORDERED: FAMOTIDINE 20MG TAB PO SCH (09:00)
[2025-01-04] MEDS ORDERED: ENOXAPARIN SODIUM 40 MG/0.4 ML SYRINGE SQ SCH (09:00)
--- NOTE | 2025-01-04 15:43 | DS ---
Discharge Summary Hospital Course Summary: History of Present Illness Mr. Newby is a 29-year-old male that was seen and examined today on 01/03/2025. Patient is a good historian of personal health Patient reports that he came to the emergency department with a chief complaint of chest pain. Onset was 1800 today. Location is left-sided chest. Duration is on and off. Character is described as pressure. There was no alleviating factors. There was no aggravating factors. Patient denies any associated shortness of breath or dizziness. Today in the emergency department CBC unremarkable, CK 2262, urinalysis unremarkable, alcohol level 308. Emergency room physician recommended patient be admitted with a diagnosis of acute alcohol intoxication and rhabdomyolysis The patient signed out against medical advice from the ER even before we could examine the patient. As per the ED nurse, the patient does not wish to continue any treatment at this time and is refusing to stay and complete evaluation and disposition. The nurse informed the patient about all the risks and benefits of leaving against medical advice. Possible benefit include correction of the current medical condition and improvement of symptoms. However the patient was advised that possible risk of leaving against medical advice include worsening of the current medical condition, including or causing . The patient verbalized understanding of the risks and benefits discussed. Despite the patient signed out against medical advice. Procedure(s): [address] [address] IMAGING REPORT Signed PATIENT: JESSICA NEWBY MR#: [id number] : 1995 SEX: M AGE: 29 LOCATION: EDHIP ORDER 16 STATUS: ADM IN REPORT#: [id number] SERVICE 15 REASON: CHEST PAIN ORDERING PHYSICIAN: EBEN WEST MD PROCEDURE: CXR1VW - CHEST 1VW EXAM: CR Chest, 1 view CLINICAL HISTORY: Chest pain. COMPARISON: None provided. FINDINGS: The lungs show no infiltrates or other acute findings. No pleural effusion or pneumothorax. The cardiomediastinal silhouette is within normal limits. No acute osseous abnormality. IMPRESSION: No acute cardiopulmonary process is evident. /[place] DICTATED BY: DEMETRIS BLUM Jr., MD DATE: 01/04/25153 ELECTRONICALLY SIGNED BY: DEMETRIS BLUM Jr., MD DATE: 01/04/25153 Assessment/Plan: ASSESSMENT: Acute alcohol intoxication, POA Rhabdomyolysis, POA Chest pain, POA Discharge Instructions: Patient left against medical advice before we could even examine the patient. Home Medications: Active Scripts Eszopiclone (Lunesta) 2 Mg Tablet, 2 MG PO HS PRN for SLEEP, #15 TAB 0 Refills Prov:WENCESLAO WINCHESTER MD 09/19/24 Time spent arranging discharge: 1-30 minutes ATTESTATION BY PHYSICIAN I have seen and examined the patient. I reviewed the documentation, medical decision making, and treatment plan as noted by the resident provider above. I agree with the findings and plan of care. Greg Garg MD, SHAJI MD Jan 04, 2025 15:43
== END 2025-01-04 07:51 | disposition left against medical advice (07) | DRG 558 ==
LOC: EDH 21:14 → EDHIP 21:15
PROVIDERS: ADMIT Internal Medicine; ATTEND Internal Medicine
DX: M62.82 Rhabdomyolysis (principal); F10.239 Alcohol dependence with withdrawal, unspecified; F17.210 Nicotine dependence, cigarettes, uncomplicated; Y90.8 Blood alcohol level of 240 mg/100 ml or more; J45.909 Unspecified asthma, uncomplicated; Z53.29 Procedure and treatment not carried out because of patient's decision for other reasons; Z51.5 Encounter for palliative care; Z79.82 Long term (current) use of aspirin; Z82.5 Family history of asthma and other chronic lower respiratory diseases
CPT/HCPCS: 36415; 71045; 80048; 80305; 81001; 82550; 83690; 84484; 85025; 93005; 96374; 96375; 99285; G0378; J2405; J2470; J3411; J3490; J7030

== ENCOUNTER 2025-01-05 03:26 | Inpatient (IN) | payer SELFPAY ==
[~2025-01-05] VITALS: Ht 170.2 cm; Wt 83.9 kg
[2025-01-05 03:27] VITALS: TEMP 97.5
--- NOTE | 2025-01-05 03:34 | NUR ---
SAHKA PEREZ AFTER OBTAINING MORE INFORMATION FROM PT
--- NOTE | 2025-01-05 03:47 | ERN ---
ED Note History of Present Illness Stated Complaint: CHEST PAIN Chief Complaint: Chest Pain Time Seen by MD: 03:34 Dictation: Patient comes in with complaint of chest pain. Patient is a reports he is a binge drinker. He can have several weeks of sobriety and then binge. He started bingeing six days ago. Was seen yesterday and noted to have alcohol intoxication along with a CK elevation of proximally 2200. He then left AMA. After he left he states he went and drank two more bottles of vodka in the morning along with several other drank and fell asleep. He got up tonight around 2:00 a.m.. He started having pain in his left chest and feeling anxious. He states he did not have a phone so he started knocking on neighbor's doors to try to get some help. Someone called the police as he was knocking on people's doors at 2:00 a.m.. He started explained this to the police what happened and EMS was called and brought patient for evaluation. Through patient does state that he binge drinks but usually is able to manage it does not want any sort of rehab or treatment for his alcoholism. He reports he is also feeling a bit nauseous. Allergies: Coded Allergies: Beef Containing Products (Unverified Allergy, Unknown, 01/05/25) No Known Drug Allergies (Verified Allergy, Unknown, 01/15/19) Yeast (Unverified Allergy, Unknown, 01/05/25) banana (Unverified Allergy, Unknown, 01/05/25) Home Meds Active Scripts Eszopiclone (Lunesta) 2 Mg Tablet, 2 MG PO HS PRN for SLEEP, #15 TAB 0 Refills Prov:WENCESLAO WINCHESTER MD 09/19/24 Past Medical History Past Medical History: Alcoholism, Other Additional Past Medical Hx: ALCOHOLISM Surgical History: Tonsillectomy Family History: Negative Social History: ETOH, Other Review of System Dictation Ten systems reviewed and negative except as noted in HPI Initial Vital Sign VS Vital Signs Date Time Temp Pulse Resp B/P (MAP) Pulse Ox O2 Delivery O2 Flow Rate FiO2 01/05/25 03:27 97.5 91 18 136/90 100 Room Air 01/05/25 04:22 0 21 Physical Exam Dictation GEN: non toxic, NAD HEENT: atrumatic, PERRL, EOMI, conjunctivae normal NECK: Soft supple nontender Heart RRR, no murmurs Chest: No deformity Lungs: Lungs clear to auscultation Ab: Soft nondistended nontender Back: No midline step-offs. No gross deformity. No CVA tenderness : m/s: Moving all four extremities. No gross deformity Neuro: CN 2-12 intact. Moving all four extremities. Psych: [facility] for Results (Laboratory/Radiology) Laboratory/Radiology Laboratory Tests Test 01/05/25 04:01 White Blood Count 5.5 K/uL (4.8-10.8) Red Blood Count 4.88 MIL/uL (4.50-6.20) Hemoglobin 14.8 g/dL (14.0-18.0) Hematocrit 41.9 % (42-54) L Mean Corpuscular Volume 85.9 fL (79-99) Mean Corpuscular Hemoglobin 30.3 pg (27.0-33.0) Mean Corpuscular Hemoglobin Concent 35.3 g/dL (32.0-36.0) Red Cell Distribution Width 13.3 % (11.0-15.5) Platelet Count 336 K/uL (130-400) Mean Platelet Volume 9.7 fL (7.5-10.5) Immature Granulocyte % (Auto) 0.0 % (0-1) Neutrophils (%) (Auto) 39.8 % (40.0-77.0) L Lymphocytes (%) (Auto) 47.3 % (21.0-51.0) Monocytes (%) (Auto) 10.4 % (3.0-13.0) Eosinophils (%) (Auto) 1.6 % (0.0-8.0) Basophils (%) (Auto) 0.9 % (0.0-5.0) Neutrophils # (Auto) 2.2 K/uL (1.8-7.7) Lymphocytes # (Auto) 2.6 K/uL (1.0-4.8) Monocytes # (Auto) 0.6 K/uL (0.1-1.0) Eosinophils # (Auto) 0.09 K/uL (0.00-0.70) Basophils # (Auto) 0.05 K/uL (0.00-0.20) Absolute Immature Granulocyte (auto 0.00 K/uL (0-1) Nucleated Red Blood Cells 0.0 % (0.0-0.19) Sodium Level 147 mmol/L (136-145) H Potassium Level 3.6 mmol/L (3.5-5.1) Chloride Level 106 mmol/L (101-111) Carbon Dioxide Level 28 mmol/L (21-32) Blood Urea Nitrogen 13 mg/dL (7-18) Creatinine 1.0 mg/dL (0.5-1.3) Glomerular Filtration Rate Calc 105 mL/min (>90) Random Glucose 88 mg/dL (70-105) Total Calcium 8.1 mg/dL (8.5-10.1) L Total Creatine Kinase 1429 U/L (21-232) #*H Troponin I High Sensitivity 5.1 ng/L (4-75) Lipase 38 U/L (16-77) Serum Alcohol 269 mg/dL (0-10) H X-RAY Comment: PATIENT: JESSICA ANDERSEN MR#: [id number] : 1995 SEX: M AGE: 29 LOCATION: [facility] ORDER 8 STATUS: [facility] REPORT#: [id number] SERVICE 7 REASON: CHEST PAIN ORDERING PHYSICIAN: PANTERA GARDUNO MD PROCEDURE: CXR1VW - CHEST 1VW EXAM: CR Chest, single view. CLINICAL HISTORY: Chest pain. COMPARISON: Prior chest radiograph dated January 03, 2025. FINDINGS: The lungs show no infiltrate or other acute findings. No pleural effusion or pneumothorax. The cardiomediastinal silhouette is within normal limits. No acute osseous abnormality. IMPRESSION: No acute cardiopulmonary pathology is evident. Compared to the prior study, there is no interval change. /[place] DICTATED BY: DEMETRIS BLUM Jr., MD DATE: 01/05/25532 ELECTRONICALLY SIGNED BY: DEMETRIS BLUM Jr., MD DATE: 01/05/25532 ED Course ED Course Orders Procedure Category Date Status Time Vital Signs Per CPOE 01/05/25 Transmitted Routine 03:28 Chest 1vw RAD 01/05/25 Resulted 03:28 12 Lead Ekg Tracing- EKG 01/05/25 Complete Technical 03:28 Oxygen By Nc/Pulse Ox CPOE 01/05/25 Transmitted 03:28 Maintain Iv CPOE 01/05/25 Transmitted 03:28 Iv Insertion CPOE 01/05/25 Transmitted 03:28 Cardiac Monitoring CPOE 01/05/25 Transmitted 03:28 Pulse Oximetry With CPOE 01/05/25 Transmitted Vs And Prn 03:28 Cbc With Differential LAB 01/05/25 Complete 03:28 Activity: Br W/Brp CPOE 01/05/25 Transmitted With Assist 03:28 Urinalysis Profile LAB 01/05/25 Logged 03:28 Basic Metabolic Panel LAB 01/05/25 Complete 03:28 Drug Screen Urine LAB 01/05/25 Logged 03:28 0.9%Nacl 1000ml (Ns PHA 01/05/25 Complete 1000ml) 04:00 12 Lead Ekg Tracing- EKG 01/05/25 Logged Technical 03:43 Diazepam 5 Mg/Ml 2 Ml PHA 01/05/25 Complete Syg (Valium 5 Mg/M 04:30 Diazepam 5 Mg/Ml 2 Ml PHA 01/05/25 Complete Syg (Valium 5 Mg/M 04:08 Alcohol, Blood LAB 01/05/25 Complete 04:01 Cardiac Panel LAB 01/05/25 Complete 04:01 Lipase LAB 01/05/25 Complete 04:01 Current Medications Medications (Trade) Dose Ordered Sig/Moncho Route PRN Reason Start Time Stop Time Status Last Admin Dose Admin Diazepam (VALium 5 MG/ML 2 ML SYG) 5 mg ONCE ONCE IVP 01/05/25 04:30 01/05/25 04:31 DC Diazepam (VALium 5 MG/ML 2 ML SYG) 10 mg STK-MED ONCE .ROUTE 01/05/25 04:08 01/05/25 04:08 DC 01/05/25 04:14 Sodium Chloride 1,000 ml @ 999 mls/hr Q1H1M IV 01/05/25 04:00 01/05/25 06:11 DC 01/05/25 04:14 Vital Signs Date Time Temp Pulse Resp B/P (MAP) Pulse Ox O2 Delivery O2 Flow Rate FiO2 01/05/25 06:29 73 16 122/75 98 Room Air* 0 21 01/05/25 05:31 71 16 119/81 97 Room Air* 0 21 01/05/25 04:22 89 18 132/96 97 Room Air* 0 21 01/05/25 03:27 97.5 91 18 136/90 100 Room Air Medical Decision Making MDM We will recheck labs here including a CK as it was noted to be elevated yesterday. Give fluids. Patient was also bit tremulous at initial evaluation. I did give him Valium. Patient is intoxicated with alcohol in the 260s however I think patient tends to live much higher. He had stated that he had not drank in since yesterday morning it although he had more than two pt of off as well as several other drinks. The Valium seems to be working. Patient continues to have rhabdomyolysis although mildly improved from yesterday but continues to be elevated. Patient would like to try to stop at this point and wants to stay in the hospital. Patient had left AMA during his last ED visit. However patient he is realizing that he is having some difficulty and would like help. As such patient will be admitted to hospitalist service. Patient does not have PCP. Procedure Procedure Dictation: EKG Sinus rhythm 86 W[place] of 158 QRS of 81 QTC of 449 normal axis QRS complexes narrow good R-wave progression STT wave segments are otherwise unremarkable. Interpre tation normal EKG DX & DISP Disposition: Inpatient Departure Impression: Primary Impression: Alcohol intoxication Additional Impressions: Alcoholic gastritis, Alcohol withdrawal, Rhabdomyolysis Condition: Stable Referrals: SELF,REFERRAL (PCP) PANTERA GARDUNO MD Jan 05, 2025 03:47
--- NOTE | 2025-01-05 04:05 | EKG ---
[facility] Test Date: 2025-01-05 Test Time: 03:59:23 Pat Name: JESSICA ANDERSEN Department: [facility] Room: ED Gender: M Manager Clinical Pharmacy: [id number] : 1995 Requested By: PANTERA GARDUNO Order Number: [id number] Reading MD: Florecita Bhatia Measurements Intervals [place] Rate: 86 P: 60 IA: 158 QRS: 63 QRSD: 81 T: 36 QT: 375 QTc: 449 Interpretive Statements Sinus rhythm Compared to ECG 01/03/2025 21:14:25 Sinus tachycardia no longer present Electronically Signed On 01-05-2025 16:22:56 CDT by Florecita Bhatia Please click the below link to view image of tracing.
[2025-01-05] MEDS: 0.9%NACL 1000ML 1,000 ML IV SCH (04:14)
[2025-01-05 04:15] LABS: IMMATURE GRANULOCYTE ABSOLUTE 0.00 K/uL (0-1); NUCLEATED RED BLOOD CELLS 0.0 % (0.0-0.19); PLATELET COUNT (AUTO) 336 K/uL (130-400); RED BLOOD CELL COUNT(AUTO) 4.88 MIL/uL (4.50-6.20); RED CELL DISTRIBUTION WIDTH 13.3 % (11.0-15.5); WHITE BLOOD COUNT (AUTO) 5.5 K/uL (4.8-10.8)
--- NOTE | 2025-01-05 04:20 | NUR ---
TRIAGE EDIT TO ADD EMS INFORMATION
[2025-01-05 04:24] LABS: CREATININE 1.0 mg/dL (0.5-1.3); GLOMERULAR FILTR. RATE CALC 105.0 mL/min (>90); GLUCOSE,RANDOM 88.0 mg/dL (70-105); SODIUM SERUM 147.0 mmol/L (136-145); UREA NITROGEN, BLOOD 13.0 mg/dL (7-18)
--- NOTE | 2025-01-05 04:33 | HMCIMG ---
EXAM: CR Chest, single view. CLINICAL HISTORY: Chest pain. COMPARISON: Prior chest radiograph dated January 03, 2025. FINDINGS: The lungs show no infiltrate or other acute findings. No pleural effusion or pneumothorax. The cardiomediastinal silhouette is within normal limits. No acute osseous abnormality. IMPRESSION: No acute cardiopulmonary pathology is evident. Compared to the prior study, there is no interval change. /[place]
[2025-01-05 04:52] LABS: ALCOHOL, BLOOD 269.0 mg/dL (0-10)
[2025-01-05 05:14] LABS: CREATINE KINASE, TOTAL 1429.0 U/L (21-232)
[2025-01-05 06:29] VITALS: BP 122/75; PULSE 73; RESP 16; O2SAT 98
[2025-01-05 07:45] LABS: APPEARANCE,URINE CLOUDY (CLEAR); GLUCOSE, URINE (UA) NEGATIVE (NEGATIVE); LEUKOCYTE ESTERASE ,URINE NEGATIVE Leu/uL (NEGATIVE); NITRATE,URINE NEGATIVE (NEGATIVE); OCCULT BLOOD,URINE NEGATIVE (NEGATIVE)
[2025-01-05 07:47] LABS: ADD UA MICROSCOPIC YES
[2025-01-05 07:49] LABS: SQUAMOUS EPITHELIAL CELL,UR RARE /HPF (0-2)
[2025-01-05 07:52] LABS: AMPHET/METH SCREEN,URINE NEGATIVE (NEGATIVE); BARBITURATE SCREEN, URINE NEGATIVE (NEGATIVE); CANNABINOID SCREEN,URINE NEGATIVE (NEGATIVE); COCAINE SCREEN,URINE NEGATIVE (NEGATIVE)
[2025-01-05] MEDS ORDERED: PHARMACY COMMUNICATION MISC PRN (08:30)
[2025-01-05] MEDS ORDERED: MAGNESIUM 2GM PREMIX 50ML 50 ML IV SCH (08:30)
[2025-01-05] MEDS ORDERED: PoTASSium chl 10% ELIXIR 20MEQ 20 MEQ/15 ML UDCUP PO PRN (08:30)
[2025-01-05 08:42] LABS: INR 1.13 (0.85-1.15)
--- NOTE | 2025-01-05 08:42 | HP ---
[facility] HISTORY AND PHYSICAL Date of Service: Jan 05, 2025 Time of Service: 08:33 HISTORY OF PRESENT ILLNESS: Date of service: 01/05/2025, patient was seen in ER room 11 This is a young 29-year-old male with history of alcohol use disorder, who presented to the ER for further evaluation of anxiety and concerns for alcohol withdrawal. Patient was just hospitalized yesterday with rhabdomyolysis and alc ohol withdrawals and left [facility] against medical advice. Patient states that he went home, and drank vodka and multiple cans of beer. He is not completely sure about events of yesterday. He came back to the hospital with symptoms of anxiety, shakes and concerns for withdrawal. Reports having nausea. Denies any syncopal episodes that he can remember. Denies any headache or falls. Patient reports having had issues with alcohol since the age of 22. He reports bingeing on alcohol and he started bingeing on alcohol since Monday, about six days ago. He reports having had issues with hallucinations, tremors, anxiety with previous history of alcohol withdrawals. Denies any history of seizures. He is worried that he may have a seizure prompting him to come to the ER again today. Denies any active suicidal thoughts or previous suicidal attempts. Denies any illicit drug use or tobacco use. Labs on presentation showed WBC count of 5500, hemoglobin 14.8, platelet count of [id number]. BMP on presentation showed sodium 147, potassium 3.6, chloride of 106, CO2 of 28, BUN of 13, creatinine 1.0, CK of 1429, lipase of 38. Blood alcohol level at 4:00 a.m. today was 269. Patient will be admitted for further management of moderate to severe alcohol w ithdrawals with alcohol use disorder, acute rhabdomyolysis. We will obtain liver function test to assess for alcoholic hepatitis. Anticipate hospitalization for at least 48-72 hours for management of alcohol withdrawals. Consultation with psychiatry will be requested for management of alcohol use disorder and we will assess this patient for rehab as outpatient. REVIEW OF SYSTEMS CONSTITUTIONAL: Denies fevers, chills, or night sweats. No unintentional weight loss reported. NEUROLOGICAL: Denies headache, amaurosis fugax, motor weakness, sensory deficit, vertigo/spinning sensation, gait abnormalities, or tremors. ENT: No hearing loss, otalgia, otorrhea, rhinitis, rhinorrhea, hoarseness, or sore throat. CARDIOVASCULAR: Denies any exertional angina, dyspnea on exertion, orthopnea, paroxysmal nocturnal dyspnea, palpitations, life-threatening arrhythmias, claudication. PULMONARY: Denies any shortness of breath, cough, phlegm/sputum, hemoptysis, pleuritic chest pain. SLEEP: Denies morning headaches, daytime somnolence or napping. Denies difficulty falling asleep, staying asleep, waking from sleep. Denies knowledge of snoring. GASTROINTESTINAL: Nausea, denies any abdominal pain GENITOURINARY: Denies frequency, urgency, nocturia, hematuria or incontinence (Storage/Irritative symptoms.) Low urinary stream, straining to void, urinary intermittency or hesitancy, splitting of the voiding stream, terminal dribbling. ENDOCRINOLOGIC: Denies polyuria, polydipsia, polyphagia or heat/cold intolerances. HEMATOLOGIC: Denies thrombophilia/previous clots, or coagulopathy/bleeding disorders. ONCOLOGIC: Denies personal history of malignancy. DERMATOLOGIC: Denies rashes or pruritus. PSYCHIATRIC: Reports having issues with anxiety, reports having withdrawals from not drinking ADDITIONAL PAST MEDICAL HISTORY: [Denies] SOCIAL HISTORY: [Reports having chronic history of bingeing on alcohol, drinks when he binges about 5-6 daily and can go sometimes without a week, drinking, he has been drinking since the age of 22, he reports having history of alcohol withdrawals, denies any alcohol withdrawal seizure, Patient denies any drug use. Lives by himself at home, reports that his dad visits him once a month.] SURGICAL HISTORY: [Tonsillectomy] Allergies: Beef containing products, yeast and banana Coded Allergies: Beef Containing Products (Unverified Allergy, Unknown, 01/05/25) No Known Drug Allergies (Verified Allergy, Unknown, 01/15/19) Yeast (Unverified Allergy, Unknown, 01/05/25) banana (Unverified Allergy, Unknown, 01/05/25) PHYSICAL EXAM GENERAL APPEARANCE: The patient is awake, appears tremulous, does not appear in significant distress NEUROLOGICAL: Cranial nerves II-XII grossly intact. Motor is 5/5 in bilateral upper and lower extremities proximal to distal. No sensory deficits. HEENT: Face is symmetric. Pupils are equal and reactive. Extraocular movements are intact. NECK: Supple. No JVD. No thyromegaly. No submental, submandibular, pre- /postauricular, occipital or supraclavicular lymphadenopathy. CHEST: Normal chest expansion. No Telemetry. LUNGS: Absence of any rales, rhonchi or any wheezing. CARDIOVASCULAR: Regular. S1 and S2 normal. No appreciable rubs, murmurs or gallops. ABDOMEN: Soft, nontender, and nondistended. There is no rebound, voluntary guarding, or rigidity. : Deferred. No [place]. EXTREMITIES: Non-edematous and not cyanotic. No clubbing. Good capillary refill. SKIN: No skin breakdown. Vital Sign (Last 24 Hours) 01/05/25 01/05/25 03:27 06:29 Temp 97.5 Pulse 73 Resp 16 B/P (MAP) 122/75 Pulse Ox 98 O2 Delivery Room Air* O2 Flow Rate 0 FiO2 21 LABS: Laboratory: Test 01/05/25 06:07 01/05/25 04:01 Range/Units Urine Color YELLOW YELLOW Urine Appearance CLOUDY H CLEAR Urine pH 5.5 5.0-8.0 Urine Specific [place] 1.021 1.001-1.031 Urine Protein 20 H NEGATIVE mg/dL Urine Glucose (UA) NEGATIVE NEGATIVE mg/dL Urine Ketones NEGATIVE NEGATIVE mg/dL Urine Occult Blood NEGATIVE NEGATIVE Urine Nitrate NEGATIVE NEGATIVE Urine Bilirubin NEGATIVE NEGATIVE mg/dL Urine Urobilinogen 0.2 0.2-1.0 mg/dL Urine Leukocyte Esterase NEGATIVE NEGATIVE Scott/uL Urine RBC 2-5 H 0-1 /HPF Urine WBC 2-5 H 0-1 /HPF Urine Squamous Epithelial Cells RARE 0-2 /HPF Urine Bacteria RARE None Seen /HPF Urine Hyaline Casts 2-5 H 0-1 /LPF /LPF Urine Opiates Screen NEGATIVE NEGATIVE Urine Barbiturates Screen NEGATIVE NEGATIVE Urine Phencyclidine Screen NEGATIVE NEGATIVE Urine Amphetamines Screen NEGATIVE NEGATIVE Urine Benzodiazepines Screen POSITIVE H NEGATIVE Urine Cocaine Screen NEGATIVE NEGATIVE Urine Marijuana (THC) Screen NEGATIVE NEGATIVE White Blood Count 5.5 4.8-10.8 K/uL Red Blood Count 4.88 4.50-6.20 MIL/uL Hemoglobin 14.8 14.0-18.0 g/dL Hematocrit 41.9 L 42-54 % Mean Corpuscular Volume 85.9 79-99 fL Mean Corpuscular Hemoglobin 30.3 27.0-33.0 pg Mean Corpuscular Hemoglobin Concent 35.3 32.0-36.0 g/dL Red Cell Distribution Width 13.3 11.0-15.5 % Platelet Count 336 130-400 K/uL Mean Platelet Volume 9.7 7.5-10.5 fL Immature Granulocyte % (Auto) 0.0 0-1 % Neutrophils (%) (Auto) 39.8 L 40.0-77.0 % Lymphocytes (%) (Auto) 47.3 21.0-51.0 % Monocytes (%) (Auto) 10.4 3.0-13.0 % Eosinophils (%) (Auto) 1.6 0.0-8.0 % Basophils (%) (Auto) 0.9 0.0-5.0 % Neutrophils # (Auto) 2.2 1.8-7.7 K/uL Lymphocytes # (Auto) 2.6 1.0-4.8 K/uL Monocytes # (Auto) 0.6 0.1-1.0 K/uL Eosinophils # (Auto) 0.09 0.00-0.70 K/uL Basophils # (Auto) 0.05 0.00-0.20 K/uL Absolute Immature Granulocyte (auto 0.00 0-1 K/uL Nucleated Red Blood Cells 0.0 0.0-0.19 % Sodium Level 147 H 136-145 mmol/L Potassium Level 3.6 3.5-5.1 mmol/L Chloride Level 106 101-111 mmol/L Carbon Dioxide Level 28 21-32 mmol/L Blood Urea Nitrogen 13 7-18 mg/dL Creatinine 1.0 0.5-1.3 mg/dL Glomerular Filtration Rate Calc 105 >90 mL/min Random Glucose 88 70-105 mg/dL Total Calcium 8.1 L 8.5-10.1 mg/dL Total Creatine Kinase 1429 #*H 21-232 U/L Troponin I High Sensitivity 5.1 4-75 ng/L Lipase 38 16-77 U/L Serum Alcohol 269 H 0-10 mg/dL Current Medications Medications (Trade) Dose Ordered Sig/Moncho Route PRN Reason Start Time Stop Time Status Last Admin Dose Admin Albuterol (DUOneb) 1 udvial Q6H PRN IH SHORTNESS OF BREATH 01/05/25 08:30 02/04/25 08:29 Chlordiazepoxide HCl (LIBrium 25 MG CAP) 25 mg Q2H PRN PO ALCOHOL WITHDRAWAL PROTOCOL 01/05/25 08:30 01/12/25 08:29 Dextrose/Sodium Chloride 1,000 ml @ 150 mls/hr Q6H40M IV 01/05/25 08:30 02/04/25 08:29 Diazepam (VALium 5 MG/ML 2 ML SYG) 10 mg Q4H PRN IVP ALCOHOL WITHDRAWAL PROTOCOL 01/05/25 08:30 01/12/25 08:29 Enoxaparin Sodium (Lovenox) 40 mg DAILY SQ 01/05/25 09:00 02/04/25 08:59 Famotidine (Pepcid 20mg Vial) 20 mg BID IV 01/05/25 09:00 02/04/25 08:59 Folic Acid (FOLic ACID 1 MG TABLET) 1 mg DAILY PO 01/05/25 09:00 01/07/25 09:01 Magnesium Sulfate 50 ml @ 0 mls/hr PROTOCOL IV 01/05/25 08:30 02/04/25 08:29 Multivitamins Therapeutic (Multivitamin Tablet) 1 tab DAILY PO 01/05/25 09:00 02/04/25 08:59 Ondansetron HCl (zoFRAN 4MG INJ) 4 mg Q6H PRN IV NAUSEA 01/05/25 08:30 02/04/25 08:29 Pharmacy Profile Note (Pharmacy Communication) 1 each PROTOCOL PRN MISC ETOH Withdrawal Score changes 01/05/25 08:30 01/12/25 08:29 Potassium Chloride 100 ml @ 100 mls/hr AD PRN IV POTASSIUM PROTOCOL 01/05/25 08:30 02/04/25 08:29 Potassium Chloride (K-Dur/Klor-Con 20meq) 20 meq AD PRN PO POTASSIUM PROTOCOL 01/05/25 08:30 02/04/25 08:29 Potassium Chloride (KCl 10% Elixir 20meq/15ml) 20 meq AD PRN PO POTASSIUM PROTOCOL 01/05/25 08:30 02/04/25 08:29 Sodium Chloride 1,000 ml @ 999 mls/hr Q1H1M IV 01/05/25 04:00 01/05/25 06:11 DC 01/05/25 04:14 999 MLS/HR Thiamine HCl (Vitamin B-1) 300 mg Q24H IVP 01/05/25 08:30 02/04/25 08:29 DIAGNOSTICS / RADIOLOGY: SERVICE [id number] REASON: CHEST PAIN ORDERING PHYSICIAN: PANTERA GARDUNO MD PROCEDURE: CXR1VW - CHEST 1VW EXAM: CR Chest, single view. CLINICAL HISTORY: Chest pain. COMPARISON: Prior chest radiograph dated January 03, 2025. FINDINGS: The lungs show no infiltrate or other acute findings. No pleural effusion or pneumothorax. The cardiomediastinal silhouette is within normal limits. No acute osseous abnormality. IMPRESSION: No acute cardiopulmonary pathology is evident. Compared to the prior study, there is no interval change. /[place] DICTATED BY: DEMETRIS BLUM Jr., MD DATE: 01/05/25532 ELECTRONICALLY SIGNED BY: DEMETRIS BLUM Jr., MD DATE: 01/05/25532 ASSESSMENT: [id number] alcohol withdrawals, POA History of delirium tremens and 11/2024, POA Acute rhabdomyolysis, POA Rule out acute alcoholic hepatitis, POA Alcohol use disorder with alcohol binging disorder, POA Hypernatremia with dehydration, POA Medical noncompliance with recent AMA discharge on 12/30 from [facility], POA PLAN: Patient will be admitted to medical-surgical floor under telemetry monitoring We will start patient on D5 half NS for IV hydration and to decrease the risk of alcoholic ketoacidosis, we will keep patient on 150 mL/hour due to underlying rhabdomyolysis as well We will start patient on IV thiamine 300 mg daily, we will start patient on folic acid and multivitamins we will start patient on a liquid diet We will start patient on CIWA protocol with Librium, and IV diazepam 10 mg q.4 h ours p.r.n. for management of [id number]-tc-[id number] alcohol withdrawals Consultation with psychiatry will be requested Consultation with case management and social sciences professor will be requested, we will see if patient qualifies for detox/rehab center as outpatient Keep patient on potassium magnesium protocol We will obtain a liver ultrasound as well All labs will be repeated in the morning, we will anticipate hospitalization of this patient for at least 48-72 hours, patient will be monitored closely especially due to previous history of delirium tremens, we will monitor patient closely for severe withdrawals All labs will be repeated in the morning, we will repeat a blood alcohol level and BMP later today DVT prophylaxis with Lovenox, GI prophylaxis with Pepcid Plan of care was discussed with patient at bedside, Robin Taylor MD Advanced Care Planning: Which of the following were discussed: Hospice care: Yes __ No _X_ Therapeutic options: Yes _X_ No __ Advance directives: Yes _X_ No __ Other discussions: Discussed with who?: Patient Voluntary nature of this service was explained to the patient? Yes _x_ No __ Amount of time spent: 20 minutes ROBIN TAYLOR MD Jan 05, 2025 08:42
[2025-01-05] MEDS: FAMOTIDINE 20MG VIAL IV SCH (08:50)
[2025-01-05] MEDS: MULTIVITAMIN TABLET PO SCH (08:50)
[2025-01-05] MEDS: DEXTROSE 5 %-0.45 % NACL 1,000 ML IV SCH (08:50)
[2025-01-05] MEDS: THIAMINE HCL 100 MG/ML 2ML VIAL IVP SCH (08:50)
[2025-01-05] MEDS: PoTASSium chloRIDE 20MEQ ER 20 MEQ ERTAB PO PRN (08:51)
[2025-01-05] MEDS: ENOXAPARIN SODIUM 40 MG/0.4 ML SYRINGE SQ SCH (08:51)
--- NOTE | 2025-01-05 08:53 | HMCIMG ---
EXAM: CT Head Without IV contrast. CLINICAL HISTORY: alcohol withdrawal with hallucinations, hx of binge drinking TECHNIQUE: Axial computed tomography images of the head/brain without intravenous contrast. COMPARISON: None provided. FINDINGS: BRAIN: No evidence of acute hemorrhage. No mass lesion. No CT evidence for acute territorial infarct. No midline shift or extra-axial collections. VENTRICLES: No hydrocephalus. ORBITS: The orbits are unremarkable. SINUSES AND MASTOIDS: The paranasal sinuses and mastoid air cells are clear. BONES: No fracture. SOFT TISSUES: Unremarkable. IMPRESSION: 1. No acute intracranial findings. /[place]
--- NOTE | 2025-01-05 08:56 | NUR ---
PT JUST RETURNED FROM CT SCAN VIA STRETCHER
[2025-01-05 08:59] LABS: ASPARTATE AMINOTRANSFERASE 99.0 U/L (10-37); PHOSPHORUS 4.6 mg/dL (2.5-4.9); TOTAL PROTEIN, SERUM 7.7 g/dL (6.0-8.3)
--- NOTE | 2025-01-05 09:23 | NUR ---
Assisted patient out of bed to go to restroom, patient never returned to room. Patient not found in ER, charge nurse Irvin and Dr. Taylor notified. Patient had an established IV in his right antecubital, IV was not removed prior to patient leaving facility. We will notify [place] [employer].
--- NOTE | 2025-01-05 10:53 | NUR ---
PAYTON SALAZAR WAS INFORMED OF SITUATION AND PER DISPATCHER, THEY ARE CURRENTLY KEEPING A LOOK OUT FOR HIM IN THE SURROUNDING HOSPITAL AREA
--- NOTE | 2025-01-05 10:54 | NUR ---
OFFICE AIDE MADE AWARE OF SITUATION.
--- NOTE | 2025-01-05 11:25 | CONS ---
CONSULT NOTE: Reason for consult: alcohol use disorder, alcohol withdrawals, binge drinking on alcohol Reason for medical admission: This is a young 29-year-old male with history of alcohol use disorder, who presented to the ER for further evaluation of anxiety and concerns for alcohol withdrawal. Patient was just hospitalized yesterday with rhabdomyolysis and alcohol withdrawals and left [facility] against medical advice. Patient states that he went home, and drank vodka and multiple cans of beer. He is not completely sure about events of yesterday. He came back to the hospital with symptoms of anxiety, shakes and concerns for withdrawal. Reports having nausea. Denies any syncopal episodes that he can re member. Denies any headache or falls. Patient reports having had issues with alcohol since the age of 22. He reports bingeing on alcohol and he started bingeing on alcohol since Monday, about six days ago. He reports having had issues with hallucinations, tremors, anxiety with previous history of alcohol withdrawals. Denies any history of seizures. He is worried that he may have a seizure prompting him to come to the ER again today. Denies any active suicidal thoughts or previous suicidal attempts. Denies any illicit drug use or tobacco use. Labs on presentation showed WBC count of 5500, hemoglobin 14.8, platelet count of 133002. BMP on presentation showed sodium 147, potassium 3.6, chloride of 106, CO2 of 28, BUN of 13, creatinine 1.0, CK of 1429, lipase of 38. Blood alcohol level at 4:00 a.m. today was 269. Patient will be admitted for further management of moderate to severe alcohol withdrawals with alcohol use disorder, acute rhabdomyolysis. We will obtain liver function test to assess for alcoholic hepatitis. Anticipate hospitalization for at least 48-72 hours for management of alcohol withdrawals. Consultation with psychiatry will be requested for management of alcohol use disorder and we will assess this patient for rehab as outpatient. CC: none HPI: Patient left ED AMA. Patient has had alcohol issues for the past 7 years. He denied any hx of alcohol related seizures. He told hospitalist he had been binge drinking since Monday. He does report hx of hallucinations, tremors and anxiety when detoxing in the past. He was hospitalized yesterday for rhabdomyolysis and also left AMA. He went home yesterday, drank vodka and multiple cans of beer and then returned today due to anxiety. He cannot recall exactly what happened yesterday. Vital Signs Date Time Temp Pulse Resp B/P (MAP) Pulse Ox O2 Delivery O2 Flow Rate FiO2 01/05/25 06:29 73 16 122/75 98 Room Air* 0 21 01/05/25 03:27 97.5 Laboratory Tests Test 01/05/25 04:01 01/05/25 06:07 White Blood Count 5.5 K/uL (4.8-10.8) Red Blood Count 4.88 MIL/uL (4.50-6.20) Hemoglobin 14.8 g/dL (14.0-18.0) Hematocrit 41.9 % (42-54) L Mean Corpuscular Volume 85.9 fL (79-99) Mean Corpuscular Hemoglobin 30.3 pg (27.0-33.0) Mean Corpuscular Hemoglobin Concent 35.3 g/dL (32.0-36.0) Red Cell Distribution Width 13.3 % (11.0-15.5) Platelet Count 336 K/uL (130-400) Mean Platelet Volume 9.7 fL (7.5-10.5) Immature Granulocyte % (Auto) 0.0 % (0-1) Neutrophils (%) (Auto) 39.8 % (40.0-77.0) L Lymphocytes (%) (Auto) 47.3 % (21.0-51.0) Monocytes (%) (Auto) 10.4 % (3.0-13.0) Eosinophils (%) (Auto) 1.6 % (0.0-8.0) Basophils (%) (Auto) 0.9 % (0.0-5.0) Neutrophils # (Auto) 2.2 K/uL (1.8-7.7) Lymphocytes # (Auto) 2.6 K/uL (1.0-4.8) Monocytes # (Auto) 0.6 K/uL (0.1-1.0) Eosinophils # (Auto) 0.09 K/uL (0.00-0.70) Basophils # (Auto) 0.05 K/uL (0.00-0.20) Absolute Immature Granulocyte (auto 0.00 K/uL (0-1) Nucleated Red Blood Cells 0.0 % (0.0-0.19) Prothrombin Time 11.8 SEC (9.6-11.6) H Prothromb Time International Ratio 1.13 (0.85-1.15) Activated Partial Thromboplast Time 30.8 SEC (26.3-35.5) Sodium Level 147 mmol/L (136-145) H Potassium Level 3.6 mmol/L (3.5-5.1) Chloride Level 106 mmol/L (101-111) Carbon Dioxide Level 28 mmol/L (21-32) Blood Urea Nitrogen 13 mg/dL (7-18) Creatinine 1.0 mg/dL (0.5-1.3) Glomerular Filtration Rate Calc 105 mL/min (>90) Random Glucose 88 mg/dL (70-105) Total Calcium 8.1 mg/dL (8.5-10.1) L Phosphorus Level 4.6 mg/dL (2.5-4.9) Magnesium Level 2.20 mg/dL (1.80-2.40) Total Bilirubin 0.7 mg/dL (0.2-1.0) Direct Bilirubin 0.2 mg/dL (0.0-0.3) Aspartate Amino Transf (AST/SGOT) 99 U/L (10-37) H Alanine Aminotransferase (ALT/SGPT) 102 U/L (12-78) H Alkaline Phosphatase 103 U/L (50-136) Total Creatine Kinase 1429 U/L (21-232) #*H Troponin I High Sensitivity 5.1 ng/L (4-75) Total Protein 7.7 g/dL (6.0-8.3) Albumin 4.2 g/dL (3.5-5.0) Lipase 38 U/L (16-77) Thyroid Stimulating Hormone (TSH) 1.77 uIU/mL (0.36-3.74) # Serum Alcohol 269 mg/dL (0-10) H Urine Color YELLOW (YELLOW) Urine Appearance CLOUDY (CLEAR) H Urine pH 5.5 (5.0-8.0) Urine Specific [place] 1.021 (1.001-1.031) Urine Protein 20 mg/dL (NEGATIVE) H Urine Glucose (UA) NEGATIVE mg/dL (NEGATIVE) Urine Ketones NEGATIVE mg/dL (NEGATIVE) Urine Occult Blood NEGATIVE (NEGATIVE) Urine Nitrate NEGATIVE (NEGATIVE) Urine Bilirubin NEGATIVE mg/dL (NEGATIVE) Urine Urobilinogen 0.2 mg/dL (0.2-1.0) Urine Leukocyte Esterase NEGATIVE Scott/uL Urine RBC 2-5 /HPF (0-1) H Urine WBC 2-5 /HPF (0-1) H Urine Squamous Epithelial Cells RARE /HPF (0-2) Urine Bacteria RARE /HPF (None Seen) Urine Hyaline Casts 2-5 /LPF (0-1 /LPF) H Urine Opiates Screen NEGATIVE (NEGATIVE) Urine Barbiturates Screen NEGATIVE (NEGATIVE) Urine Phencyclidine Screen NEGATIVE (NEGATIVE) Urine Amphetamines Screen NEGATIVE (NEGATIVE) Urine Benzodiazepines Screen POSITIVE (NEGATIVE) H Urine Cocaine Screen NEGATIVE (NEGATIVE) Urine Marijuana (THC) Screen NEGATIVE (NEGATIVE) Current Medications Medications Dose Ordered Sig/Moncho Start Time Stop Time Status Last Admin Thiamine HCl 300 mg Q24H 01/05/25 08:30 02/04/25 08:29 01/05/25 08:50 Dextrose/Sodium Chloride 1,000 ml @ 150 mls/hr Q6H40M 01/05/25 08:30 02/04/25 08:29 01/05/25 08:50 Chlordiazepoxide HCl 25 mg Q2H PRN 01/05/25 08:30 01/12/25 08:29 01/05/25 08:56 Ondansetron HCl 4 mg Q6H PRN 01/05/25 08:30 02/04/25 08:29 01/05/25 08:50 Folic Acid 1 mg DAILY 01/05/25 09:00 01/07/25 09:01 01/05/25 08:50 Multivitamins Therapeutic 1 tab DAILY 01/05/25 09:00 02/04/25 08:59 01/05/25 08:50 Pharmacy Profile Note 1 each PROTOCOL PRN 01/05/25 08:30 01/12/25 08:29 Diazepam 10 mg Q4H PRN 01/05/25 08:30 01/12/25 08:29 Enoxaparin Sodium 40 mg DAILY 01/05/25 09:00 02/04/25 08:59 01/05/25 08:51 Famotidine 20 mg BID 01/05/25 09:00 02/04/25 08:59 01/05/25 08:50 Albuterol 1 udvial Q6H PRN 01/05/25 08:30 02/04/25 08:29 Potassium Chloride 100 ml @ 100 mls/hr AD PRN 01/05/25 08:30 02/04/25 08:29 Potassium Chloride 20 meq AD PRN 01/05/25 08:30 02/04/25 08:29 Potassium Chloride 20 meq AD PRN 01/05/25 08:30 02/04/25 08:29 01/05/25 08:51 Magnesium Sulfate 50 ml @ 0 mls/hr PROTOCOL 01/05/25 08:30 02/04/25 08:29 MSE: none - patient not able to be seen [id number] Assessment: Alcohol use disorder, severe Anxiety - likely related to alcohol use Recommendations: -If patient returns recommend medical admission for supervised alcohol detox. Recommend CIWA protocol with PRN benzodiazepines. -Check vitals Q4H to monitor for HTN or tachycardia that would indicate he is not getting adequately treated with benzos -Consider starting Gabapentin 300 mg TID for help with anxiety and detox. May i ncrease ot 600 mg TID if tolerating. Continue this medication after DC to help with anxiety and relapse prevention. -Please have SW or CM speak with patient about residential and outpatient substance abuse treatment options. Please provide information about 12-step groups. -If patient reports any severe depression or SI recommend reaching out to [facility] or [facility] for inpatient psychiatric evaluation. -For any acute agitation, aggression or psychosis, consider Haldol 5 mg PO or IM Q4H PRN -Psychiatry signing off. *30 mins was spent on chart review and documentation MARGRET STALEY DO Jan 05, 2025 11:25
== END 2025-01-05 10:51 | disposition left against medical advice (07) | DRG 894 ==
LOC: EDH 03:26 → EDHIP 03:27
PROVIDERS: ADMIT Internal Medicine; ATTEND Internal Medicine
DX: F10.239 Alcohol dependence with withdrawal, unspecified (principal); M62.82 Rhabdomyolysis; E87.0 Hyperosmolality and hypernatremia; E86.0 Dehydration; F10.229 Alcohol dependence with intoxication, unspecified; Z53.29 Procedure and treatment not carried out because of patient's decision for other reasons; F41.9 Anxiety disorder, unspecified; Z91.199 Patient's noncompliance with other medical treatment and regimen due to unspecified reason; Z79.899 Other long term (current) drug therapy
CPT/HCPCS: 36415; 70450; 71045; 80048; 80076; 80305; 81001; 82550; 83690; 83735; 84100; 84443; 84484; 85025; 85610; 85730; 93005; G0378; J1650; J2405; J3360; J3411; J7030; J1308

== ENCOUNTER 2025-01-05 21:06 | Emergency (ER) | payer SELFPAY ==
[~2025-01-05] VITALS: Ht 175.3 cm; Wt 72.6 kg
--- NOTE | 2025-01-05 21:18 | EKG ---
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
[2025-01-05 21:36] LABS: IMMATURE GRANULOCYTE ABSOLUTE 0.02 K/uL (0-1); NUCLEATED RED BLOOD CELLS 0.0 % (0.0-0.19); PLATELET COUNT (AUTO) 340 K/uL (130-400); RED BLOOD CELL COUNT(AUTO) 5.02 MIL/uL (4.50-6.20); RED CELL DISTRIBUTION WIDTH 13.2 % (11.0-15.5); WHITE BLOOD COUNT (AUTO) 5.6 K/uL (4.8-10.8)
[2025-01-05 21:49] LABS: CREATININE 0.9 mg/dL (0.5-1.3); GLOMERULAR FILTR. RATE CALC 119.0 mL/min (>90); GLUCOSE,RANDOM 108.0 mg/dL (70-105); SODIUM SERUM 144.0 mmol/L (136-145); UREA NITROGEN, BLOOD 9.0 mg/dL (7-18)
[2025-01-05] MEDS: 0.9%NACL 1000ML 1,000 ML IV ONE (21:51)
[2025-01-05 22:04] LABS: CREATINE KINASE, TOTAL 994.0 U/L (21-232)
[2025-01-05 22:05] LABS: ALCOHOL, BLOOD 483.0 mg/dL (0-10)
--- NOTE | 2025-01-06 06:01 | ERN ---
General Chief Complaint: Alcohol Intoxication Stated Complaint: ETOH INTOXICATION Time Seen by MD: 21:08 History of Present Illness Initial Comments 29-year-old male came in for alcohol intoxication. Allergies: Coded Allergies: Beef Containing Products (Unverified Allergy, Unknown, 01/05/25) No Known Drug Allergies (Verified Allergy, Unknown, 01/15/19) Yeast (Unverified Allergy, Unknown, 01/05/25) banana (Unverified Allergy, Unknown, 01/05/25) Home Meds Active Scripts Eszopiclone (Lunesta) 2 Mg Tablet, 2 MG PO HS PRN for SLEEP, #15 TAB 0 Refills Prov:KASSIEPAOLAJmWENCESLAO Bardales MD 09/19/24 Past Medical History Past Medical History: Alcoholism, Other Medical History Other: ALCOHOLISM Past Surgical History: Tonsillectomy Family History Family History: Negative Social History Social History: ETOH, Other ROS Dictation None Physical Exam General Appearance: (+) no apparent distress Orientation: (+) alert, (+) oriented x 3 Neck: (+) normal inspection, (+) supple Respiratory: (+) chest non-tender, (+) lungs clear Heart: (+) regular, (+) no gallop Back: (+) normal inspection Extremities: (+) normal range of motion, (+) non-tender, (+) normal inspection Results Laboratory and Microbiology Lab and Micro Result Laboratory Tests Test 01/05/25 21:22 White Blood Count 5.6 K/uL (4.8-10.8) Red Blood Count 5.02 MIL/uL (4.50-6.20) Hemoglobin 15.1 g/dL (14.0-18.0) Hematocrit 42.4 % (42-54) Mean Corpuscular Volume 84.5 fL (79-99) Mean Corpuscular Hemoglobin 30.1 pg (27.0-33.0) Mean Corpuscular Hemoglobin Concent 35.6 g/dL (32.0-36.0) Red Cell Distribution Width 13.2 % (11.0-15.5) Platelet Count 340 K/uL (130-400) Mean Platelet Volume 9.5 fL (7.5-10.5) Immature Granulocyte % (Auto) 0.4 % (0-1) Neutrophils (%) (Auto) 34.0 % (40.0-77.0) L Lymphocytes (%) (Auto) 56.1 % (21.0-51.0) H Monocytes (%) (Auto) 7.0 % (3.0-13.0) Eosinophils (%) (Auto) 1.4 % (0.0-8.0) Basophils (%) (Auto) 1.1 % (0.0-5.0) Neutrophils # (Auto) 1.9 K/uL (1.8-7.7) Lymphocytes # (Auto) 3.1 K/uL (1.0-4.8) Monocytes # (Auto) 0.4 K/uL (0.1-1.0) Eosinophils # (Auto) 0.08 K/uL (0.00-0.70) Basophils # (Auto) 0.06 K/uL (0.00-0.20) Absolute Immature Granulocyte (auto 0.02 K/uL (0-1) Nucleated Red Blood Cells 0.0 % (0.0-0.19) Sodium Level 144 mmol/L (136-145) Potassium Level 3.4 mmol/L (3.5-5.1) L Chloride Level 104 mmol/L (101-111) Carbon Dioxide Level 27 mmol/L (21-32) Blood Urea Nitrogen 9 mg/dL (7-18) Creatinine 0.9 mg/dL (0.5-1.3) Glomerular Filtration Rate Calc 119 mL/min (>90) Random Glucose 108 mg/dL (70-105) H Total Calcium 7.9 mg/dL (8.5-10.1) L Total Creatine Kinase 994 U/L (21-232) #*H Serum Alcohol 483 mg/dL (0-10) *H MDM MDM: Differential diagnosis: Rationale: Tests considered and ordered secondary to shared decision making include: labs, ECG and radiology Previous outside records reviewed: Old ER visits. Risk of complication and/or morbidity or mortality of patient management: None Medications-Per medication reconciliation Need for hospitalization: Patient does meet criteria for hospitalization. Need for emergency major/minor surgery: No There are no social concerns with this patient. Prescription drug management Prescriptions will include symptomatic care Patient's prior external medical records from other ER visits were reviewed by me as indicated. Prior testing and results from previous visits were reviewed. Prior tests were taken into account with medical decision making and resource utilization, independent historian/historians were used to obtain complete medical history. I independently interpreted the test that were performed, results were reviewed by me and considered findings on radiology if ordered. Medical management and examination interpretation discussions were had by me with other qualified healthcare professionals as indicated for the patient's care. ED Course Orders Procedure Category Date Status Time 12 Lead Ekg Tracing- EKG 01/05/25 Complete Technical 21:08 Cbc With Differential LAB 01/05/25 Complete 21:08 Basic Metabolic Panel LAB 01/05/25 Complete 21:08 Alcohol, Blood LAB 01/05/25 Complete 21:08 Creatine Kinase, Total LAB 01/05/25 Complete 21:08 0.9%Nacl 1000ml (Ns PHA 01/05/25 Complete 1000ml) 21:30 Current Medications Medications (Trade) Dose Ordered Sig/Moncho Route PRN Reason Start Time Stop Time Status Last Admin Dose Admin Sodium Chloride 1,000 ml @ 0 mls/hr ONCE ONCE IV 01/05/25 21:30 01/05/25 21:31 DC 01/05/25 21:51 Vital Signs Date Time Temp Pulse Resp B/P (MAP) Pulse Ox O2 Delivery O2 Flow Rate FiO2 01/06/25 06:11 98.2 82 16 120/88 96 Room Air* 0 01/06/25 03:53 97.5 85 15 100/67 96 Room Air* 0 01/06/25 00:56 98.4 90 16 129/80 95 Room Air* 0 01/05/25 22:40 96 16 110/72 95 Room Air* 0 01/05/25 21:12 99.0 106 19 138/95 95 Room Air DX & DISP Disposition: Inpatient Departure Impression: Primary Impression: Alcohol intoxication Condition: Stable Referrals: SELF,REFERRAL (PCP) FUNMI BENITEZ MD Jan 06, 2025 06:01
[2025-01-06 07:41] VITALS: BP 121/76; PULSE 79; RESP 16; TEMP 98.1; O2SAT 97
--- NOTE | 2025-01-06 07:55 | NUR ---
PT NOT FOUND IN EMERGENCY ROOM RESTROOM HE USED TO VOID. IV FOUND IN RESTROOM FLOOR WITH BLOOD. PT ELOPED ER AT AROUND 07:50. ER PHYSICIAN DR. RATLIFF , ADRY PEARCE REPORT WRITER (WITH [facility]), AND SALONI SALAZAR MADE AWARE.
[2025-01-07] MEDS ORDERED: ONDA-243 PO (14:31)
[2025-01-07] MEDS ORDERED: DICY20TA2 PO (14:31)
== END 2025-01-06 08:00 | disposition left against medical advice (07) ==
LOC: EDH 21:06
DX: F10.129 Alcohol abuse with intoxication, unspecified (principal); Z91.018 Allergy to other foods; Z90.89 Acquired absence of other organs; Y90.8 Blood alcohol level of 240 mg/100 ml or more
CPT/HCPCS: 99285; 82550; 80048; 85025; 36415; 93005; J7030

== ENCOUNTER 2025-01-07 09:25 | Emergency (ER) | payer SELFPAY ==
[~2025-01-07] VITALS: Ht 170.2 cm; Wt 83.0 kg
[2025-01-07 10:35] LABS: IMMATURE GRANULOCYTE ABSOLUTE 0.02 K/uL (0-1); NUCLEATED RED BLOOD CELLS 0.0 % (0.0-0.19); PLATELET COUNT (AUTO) 268 K/uL (130-400); RED BLOOD CELL COUNT(AUTO) 4.86 MIL/uL (4.50-6.20); RED CELL DISTRIBUTION WIDTH 13.0 % (11.0-15.5); WHITE BLOOD COUNT (AUTO) 9.7 K/uL (4.8-10.8)
[2025-01-07 10:43] LABS: CREATININE 0.8 mg/dL (0.5-1.3); GLOMERULAR FILTR. RATE CALC 124.0 mL/min (>90); GLUCOSE,RANDOM 116.0 mg/dL (70-105); SODIUM SERUM 137.0 mmol/L (136-145); UREA NITROGEN, BLOOD 11.0 mg/dL (7-18)
[2025-01-07 11:06] LABS: ASPARTATE AMINOTRANSFERASE 76.0 U/L (10-37); TOTAL PROTEIN, SERUM 7.6 g/dL (6.0-8.3)
[2025-01-07 11:08] LABS: ALCOHOL, BLOOD 60.0 mg/dL (0-10)
[2025-01-07 11:09] LABS: CREATINE KINASE, TOTAL 1405.0 U/L (21-232)
[2025-01-07] MEDS: 0.9%NACL 1000ML 1,000 ML IV ONE ×2 (12:02→13:11)
[2025-01-07 12:45] LABS: APPEARANCE,URINE CLEAR (CLEAR); GLUCOSE, URINE (UA) NEGATIVE (NEGATIVE); LEUKOCYTE ESTERASE ,URINE NEGATIVE Leu/uL (NEGATIVE); NITRATE,URINE NEGATIVE (NEGATIVE); OCCULT BLOOD,URINE NEGATIVE (NEGATIVE)
[2025-01-07 12:47] LABS: ADD UA MICROSCOPIC NO
--- NOTE | 2025-01-07 12:50 | EKG ---
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
[2025-01-07 12:54] LABS: AMPHET/METH SCREEN,URINE NEGATIVE (NEGATIVE); BARBITURATE SCREEN, URINE NEGATIVE (NEGATIVE); CANNABINOID SCREEN,URINE NEGATIVE (NEGATIVE); COCAINE SCREEN,URINE NEGATIVE (NEGATIVE)
[2025-01-07] MEDS ORDERED: DICY20TA2 PO (14:31)
[2025-01-07] MEDS ORDERED: ONDA-243 PO (14:31)
--- NOTE | 2025-01-07 14:31 | NUR ---
CONTACTED [facility], SPOKE TO WESLEY ABOUT DOING FOLLOW UP CALL WITH PT WITHIN THE NEXT FEW DAYS.
--- NOTE | 2025-01-07 14:32 | ERN ---
ED Note History of Present Illness Stated Complaint: ALCOHOL WITHDRAWAL SYMTOMS Chief Complaint: Withdrawl Time Seen by MD: 09:44 Dictation: 29-year-old male presenting to the emergency department with dehydration not feeling well patient is a long-time alcohol user and frequent visits to the emergency department for similar episodes mother reports that patient was not feeling well has been having some vomiting no diarrhea no bleeding. She brought him in for evaluation patient is currently denying any suicide or homicidal ideations Allergies: Coded Allergies: Beef Containing Products (Unverified Allergy, Unknown, 01/05/25) No Known Drug Allergies (Verified Allergy, Unknown, 01/15/19) Yeast (Unverified Allergy, Unknown, 01/05/25) banana (Unverified Allergy, Unknown, 01/05/25) Home Meds Active Scripts Eszopiclone (Lunesta) 2 Mg Tablet, 2 MG PO HS PRN for SLEEP, #15 TAB 0 Refills Prov:WENCESLAO WINCHESTER MD 09/19/24 Past Medical History Past Medical History: Alcoholism, Other Additional Past Medical Hx: ALCOHOLISM Surgical History: Tonsillectomy Family History: Negative Social History: ETOH, Other Review of System Dictation Constitutional: Negative for fever,chills, and weight loss Eyes: Negative for injury, pain,redness, and discharge ENT: Negative for injury,pain or swelling Cardiovascular: Negative for chest pain, palpitations, and edema Respiratory: Negative for shortness of breath, cough, and wheezing, Abdomen/GI: Per HPI : Negative for injury, bleeding and discharge MS/Extremity: Negative for injury and deformity Skin: Negative for rash, and discoloration Neuro: Per HPI Initial Vital Sign VS Vital Signs Date Time Temp Pulse Resp B/P (MAP) Pulse Ox O2 Delivery O2 Flow Rate FiO2 01/07/25 09:26 97.9 81 18 159/97 99 Room Air 01/07/25 11:46 0 21 Physical Exam Dictation General: awake, alert, appears unkempt Head/Face: Normocephalic, atraumatic Eyes: PERRL, EOMI, vision at baseline ENT: oral cavity clear, TMs clear, no signs of infection Neck: Trachea midline, supple, no nuchal rigidity Cardiovascular: RRR, normal S1/S2, No MRGs, no JVD Respiratory: CTAB, no respiratory distress, No rales or wheezes Abdomen: Soft, non-tender, non-distended, normal bowel sounds, no guarding or rebound. Skin: Warm, dry, normal turgor, no rash MS/Extremity: Pulses equal, no cyanosis, neurovascular intact, FROM Neuro: COAx4, GCS 15, strength 5/5, CN 2-12 intact, normal cerebellar exam, normal gait, Psych: Normal behavior, mood, and affect normal Results (Laboratory/Radiology) Laboratory/Radiology Laboratory Tests Test 01/07/25 10:27 01/07/25 12:35 White Blood Count 9.7 K/uL (4.8-10.8) Red Blood Count 4.86 MIL/uL (4.50-6.20) Hemoglobin 14.7 g/dL (14.0-18.0) Hematocrit 41.7 % (42-54) L Mean Corpuscular Volume 85.8 fL (79-99) Mean Corpuscular Hemoglobin 30.2 pg (27.0-33.0) Mean Corpuscular Hemoglobin Concent 35.3 g/dL (32.0-36.0) Red Cell Distribution Width 13.0 % (11.0-15.5) Platelet Count 268 K/uL (130-400) Mean Platelet Volume 9.4 fL (7.5-10.5) Immature Granulocyte % (Auto) 0.2 % (0-1) Neutrophils (%) (Auto) 85.4 % (40.0-77.0) H Lymphocytes (%) (Auto) 10.4 % (21.0-51.0) L Monocytes (%) (Auto) 3.5 % (3.0-13.0) Eosinophils (%) (Auto) 0.1 % (0.0-8.0) Basophils (%) (Auto) 0.4 % (0.0-5.0) Neutrophils # (Auto) 8.3 K/uL (1.8-7.7) H Lymphocytes # (Auto) 1.0 K/uL (1.0-4.8) Monocytes # (Auto) 0.3 K/uL (0.1-1.0) Eosinophils # (Auto) 0.01 K/uL (0.00-0.70) Basophils # (Auto) 0.04 K/uL (0.00-0.20) Absolute Immature Granulocyte (auto 0.02 K/uL (0-1) Nucleated Red Blood Cells 0.0 % (0.0-0.19) Sodium Level 137 mmol/L (136-145) Potassium Level 4.2 mmol/L (3.5-5.1) Chloride Level 96 mmol/L (101-111) L Carbon Dioxide Level 23 mmol/L (21-32) Blood Urea Nitrogen 11 mg/dL (7-18) Creatinine 0.8 mg/dL (0.5-1.3) Glomerular Filtration Rate Calc 124 mL/min (>90) Random Glucose 116 mg/dL (70-105) H Total Calcium 8.6 mg/dL (8.5-10.1) Total Bilirubin 1.0 mg/dL (0.2-1.0) Direct Bilirubin 0.2 mg/dL (0.0-0.3) Aspartate Amino Transf (AST/SGOT) 76 U/L (10-37) H Alanine Aminotransferase (ALT/SGPT) 84 U/L (12-78) H Alkaline Phosphatase 126 U/L (50-136) Ammonia 22 umol/L (11-32) Total Creatine Kinase 1405 U/L (21-232) #*H Total Protein 7.6 g/dL (6.0-8.3) Albumin 4.1 g/dL (3.5-5.0) Serum Alcohol 60 mg/dL (0-10) H Urine Color LIGHT-YELLOW (YELLOW) Urine Appearance CLEAR (CLEAR) Urine pH 6.5 (5.0-8.0) Urine Specific [place] 1.018 (1.001-1.031) Urine Protein NEGATIVE mg/dL (NEGATIVE) Urine Glucose (UA) NEGATIVE mg/dL (NEGATIVE) Urine Ketones >=80 mg/dL (NEGATIVE) Urine Occult Blood NEGATIVE (NEGATIVE) Urine Nitrate NEGATIVE (NEGATIVE) Urine Bilirubin NEGATIVE mg/dL (NEGATIVE) Urine Urobilinogen 0.2 mg/dL (0.2-1.0) Urine Leukocyte Esterase NEGATIVE Scott/uL Urine Opiates Screen NEGATIVE (NEGATIVE) Urine Barbiturates Screen NEGATIVE (NEGATIVE) Urine Phencyclidine Screen NEGATIVE (NEGATIVE) Urine Amphetamines Screen NEGATIVE (NEGATIVE) Urine Benzodiazepines Screen POSITIVE (NEGATIVE) H Urine Cocaine Screen NEGATIVE (NEGATIVE) Urine Marijuana (THC) Screen NEGATIVE (NEGATIVE) Labs Reviewed?: Yes ED Course ED Course Orders Procedure Category Date Status Time 12 Lead Ekg Tracing- EKG 01/07/25 Complete Technical 10:20 Basic Metabolic Panel LAB 01/07/25 Complete 10:20 Cbc With Differential LAB 01/07/25 Complete 10:20 Hepatic Function Panel LAB 01/07/25 Complete 10:20 Ammonia LAB 01/07/25 Complete 10:20 Alcohol, Blood LAB 01/07/25 Complete 10:20 Creatine Kinase, Total LAB 01/07/25 Complete 10:20 Drug Screen Urine LAB 01/07/25 Complete 10:20 Urinalysis Profile LAB 01/07/25 Complete 10:20 Ondansetron 4mg Inj PHA 01/07/25 Complete (Zofran 4mg Inj) 10:20 0.9%Nacl 1000ml (Ns PHA 01/07/25 Complete 1000ml) 10:30 0.9%Nacl 1000ml (Ns PHA 01/07/25 Complete 1000ml) 13:00 Current Medications Medications (Trade) Dose Ordered Sig/Moncho Route PRN Reason Start Time Stop Time Status Last Admin Dose Admin Ondansetron HCl (zoFRAN 4MG INJ) 4 mg ONCE STAT IVP 01/07/25 10:20 01/07/25 10:25 DC 01/07/25 12:02 Sodium Chloride 1,000 ml @ 0 mls/hr ONCE ONCE IV 01/07/25 10:30 01/07/25 10:31 DC 01/07/25 12:02 Sodium Chloride 1,000 ml @ 0 mls/hr ONCE ONCE IV 01/07/25 13:00 01/07/25 13:01 DC 01/07/25 13:11 Vital Signs Date Time Temp Pulse Resp B/P (MAP) Pulse Ox O2 Delivery O2 Flow Rate FiO2 01/07/25 11:46 97.9 81 18 159/97 99 Room Air* 0 21 01/07/25 09:26 97.9 81 18 159/97 99 Room Air Medical Decision Making MDM MDM: Differential diagnosis: Rationale: Tests considered and ordered secondary to shared decision making include: Previous outside records reviewed: Old ER visits. Risk of complication and/or morbidity or mortality of patient management: None Medications-Per medication reconciliation Need for hospitalization: Patient does not meet criteria for hospitalization. Need for emergency major/minor surgery: No There are no social concerns with this patient. Prescription drug management Prescriptions will include symptomatic care Patient's prior external medical records from other ER visits were reviewed by me as indicated. Prior testing and results from previous visits were reviewed. Prior tests were taken into account with medical decision making and resource utilization, independent historian/historians were used to obtain complete medic al history. I independently interpreted the test that were performed, results were reviewed by me and considered findings on radiology if ordered. Medical management and examination interpretation discussions were had by me with other qualified healthcare professionals as indicated for the patient's care. 29-year-old male with dehydration, mild rhabdo with stable electrolytes no SI or HI, low CIWA score no signs of DTs, hydrated with IV fluids stable for discharge conducted [facility] who will do an outpatient welfare check discharged to mother's care DX & DISP Disposition: Discharge Departure Impression: Primary Impression: Rhabdomyolysis Additional Impressions: Acute dehydration, AA (alcohol abuse) Condition: Stable Scripts Dicyclomine HCl (Bentyl) 20 Mg Tab 1 TAB PO BID for irritable bowel symptoms for 10 Days, #20 TAB 0 Refills Prov: ESTRADA MARTINEZ MD 01/07/25 Ondansetron (Ondansetron Odt) 4 Mg Tab.rapdis 1 TAB PO BID PRN for nausea/vomiting for 5 Days, #10 TAB 0 Refills Prov: ESTRADA MARTINEZ MD 01/07/25 Referrals: SELF,REFERRAL (PCP) ESTRADA MARTINEZ MD Jan 07, 2025 14:31
[2025-01-07 14:34] VITALS: BP 137/77; PULSE 79; RESP 18; TEMP 97.9; O2SAT 99
== END 2025-01-07 14:37 | disposition home or self-care (01) ==
LOC: EDH 09:25
DX: E86.0 Dehydration (principal); F10.10 Alcohol abuse, uncomplicated; M62.82 Rhabdomyolysis; Z79.899 Other long term (current) drug therapy; Z90.89 Acquired absence of other organs; Z91.018 Allergy to other foods; Y90.9 Presence of alcohol in blood, level not specified
CPT/HCPCS: 99284; 96374; 96361; 82550; 80076; 80048; 80305; 82140; 85025; 36415; 93005; 81003; J7030 ×2; J2405

== ENCOUNTER 2025-02-28 20:29 | Emergency (ER) | payer SELFPAY ==
[~2025-02-28] VITALS: Ht 170.2 cm; Wt 77.6 kg
[~2025-02-28 20:29] MED LIST changes: +DICY20TA2 PO; +FOLI1 PO; +GABApentin 300 MG CAP PO; +HYDR-3421 PO; +MVIT PO; +OLAN-40 PO; +ONDA-243 PO
--- NOTE | 2025-02-28 20:54 | NUR ---
[address] BRUNNER, PT TOLERATED WELL
--- NOTE | 2025-02-28 20:57 | ERN ---
ED Note History of Present Illness Stated Complaint: SUTURE REMOVAL Chief Complaint: Suture/Staple Removal Time Seen by MD: 20:41 Dictation: Patient is a 29 year old male who presented to the ER for suture removal from the left side of lips/cheeks. Allergies: Coded Allergies: Beef Containing Products (Unverified Allergy, Unknown, 01/05/25) No Known Drug Allergies (Verified Allergy, Unknown, 01/15/19) Yeast (Unverified Allergy, Unknown, 01/05/25) banana (Unverified Allergy, Unknown, 01/05/25) Home Meds Active Scripts Olanzapine (Zyprexa) 20 Mg Tablet, 5 MG PO Q4HPRN PRN for ANXIETY/AGITATION, #15 TAB Prov:TOMMY LANE MD 02/22/25 Hydroxyzine HCl (Hydroxyzine HCl) 25 Mg Tablet, 25 MG PO HS, #15 TAB Prov:TOMMY LANE MD 02/22/25 Folic Acid (Folvite) 1 Mg Tab, 1 MG PO DAILY, #30 TAB Prov:TOMMY LANE MD 02/22/25 [GABApentin 300 MG CAP] 300 MG CAPSULE No Conflict Check, 300 MG PO TID for 30 Days, #90 0 Refills Prov:TOMMY LANE MD 02/22/25 Multivitamins,Therapeutic (Multivitamin Tablet) 400 Mcg Tab, 1 TAB PO DAILY, #30 TAB Prov:TOMMY LANE MD 02/22/25 Dicyclomine HCl (Bentyl) 20 Mg Tab, 1 TAB PO BID for irritable bowel symptoms for 10 Days, #20 TAB 0 Refills Prov:ESTRADA MARTINEZ MD 01/07/25 Ondansetron (Ondansetron Odt) 4 Mg Tab.rapdis, 1 TAB PO BID PRN for nausea/vomiting for 5 Days, #10 TAB 0 Refills Prov:ESTRADA MARTINEZ MD 01/07/25 Eszopiclone (Lunesta) 2 Mg Tablet, 2 MG PO HS PRN for SLEEP, #15 TAB 0 Refills Prov:WENCESLAO WINCHESTER MD 09/19/24 Past Medical History Past Medical History: Alcoholism, Other Additional Past Medical Hx: GASTRIC ULCERS Surgical History: Tonsillectomy Family History: Negative Social History: ETOH, Other Review of System Dictation NEGATIVE EXCEPT PER HPI Constitutional: Negative for fever,chills, and weight loss Eyes: Negative for injury, pain,redness, and discharge ENT: Negative for injury,pain or swelling Cardiovascular: denies chest pain, palpitations, and edema Respiratory: Negative for shortness of breath, cough, and wheezing, Abdomen/GI: Negative for abdominal pain, nausea, vomiting, diarrhea, and constipation Back: Negative for injury and pain : Negative for injury, bleeding and discharge MS/Extremity: Negative for injury and deformity Skin: Negative for rash, and discoloration Neuro: Negative for headache, weakness, numbness, tingling, and seizure Psych: Negative for suicide ideation, homicidal ideation, and hallucinations Initial Vital Sign VS Vital Signs Date Time Temp Pulse Resp B/P (MAP) Pulse Ox O2 Delivery O2 Flow Rate FiO2 02/28/25 20:32 98.1 92 20 137/81 98 Room Air Physical Exam Dictation General: awake, alert, NAD Head/Face: Normocephalic, atraumatic Eyes: PERRL, EOMI, vision at baseline ENT: oral cavity clear, TMs clear, no signs of infection Neck: Trachea midline, supple, no nuchal rigidity Cardiovascular: RRR, normal S1/S2, No MRGs, no JVD Respiratory: CTAB, no respiratory distress, No rales or wheezes Abdomen: Soft , no tender Skin: Left side sutures in the left lips, cheek MS/Extremity: Pulses equal, no cyanosis, neurovascular intact, FROM Neuro: COAx4, GCS 15, strength 5/5, CN 2-12 intact, normal cerebellar exam, normal gait, Psych: Normal behavior, mood, and affect normal ED Course ED Course Vital Signs Date Time Temp Pulse Resp B/P (MAP) Pulse Ox O2 Delivery O2 Flow Rate FiO2 02/28/25 20:32 98.1 92 20 137/81 98 Room Air Medical Decision Making MDM 29-year-old male with a history of laceration of left lip ago. Presented to the ER for suture removal. Procedure Procedure Dictation: Two sutures was removed from the left lip/face DX & DISP Disposition: Discharge Departure Impression: Primary Impression: Encounter for removal of sutures Condition: Stable Additional Instructions: RETURN TO ER FOR ANY ACUTE OR WORSENING SYMPTOMS. FOLLOW-UP IN 1-2 DAYS WITH PRIMARY PROVIDER FOR RECHECK OF TODAY'S SYMPTOMS. Referrals: SELF,REFERRAL (PCP) Time of Disposition: 20:56 EBEN WEST MD Feb 28, 2025 20:57
[2025-02-28 21:03] VITALS: BP 132/74; PULSE 71; RESP 18; TEMP 98.6; O2SAT 99
== END 2025-02-28 21:07 | disposition home or self-care (01) ==
LOC: EDH 20:29
DX: S01.412D Laceration without foreign body of left cheek and temporomandibular area, subsequent encounter (principal); Z48.02 Encounter for removal of sutures; Z91.018 Allergy to other foods; Z90.89 Acquired absence of other organs; Z87.11 Personal history of peptic ulcer disease; X58.XXXD Exposure to other specified factors, subsequent encounter
CPT/HCPCS: 99282